=== PATIENT | male | born 1945 | race African-American/Black ===

== ENCOUNTER 2016-11-07 22:42 | Emergency (ER) | payer OTHER ==
--- NOTE | ~2016-11-07 | CR72 ---
[facility] A Service of [facility] & [facility] RADIOLOGY TEXT RESULTS PATIENT: NORAH NEVILLE LOCATION: [facility] : [birth year] UNIT #: [id number] AGE: [address]: Garcia Hager MD SEX: M ORDER DR: [id number] [facility] [address] [place], [place] [address] [id number] E MR#: [id number] Acc #: [id number] NAME: NORAH NEVILLE : 1945 SEX: M STUDY DATE/TIME: 11/07/2016 2256 UNIT: [facility] ROOM: STUDY DESCRIPTION: CR Chest Single View Portable Attending Physician: Garcia Hager M.D. Ordering Physician: Garcia Hager M.D. Primary Care Physician: No Primary Care Physician MEDICAL IMAGING REPORT This report is preliminary unless electronic signature is present EXAM Portable chest, 11/07 at 2256. INDICATION Acute mental status changes with hypoglycemia and mild chest congestion today. History of smoking. FINDINGS AP portable chest was obtained. No comparison. Lungs are emphysematous but clear. Cardiac and mediastinal contours are normal. There is no pneumothorax. There is atherosclerotic disease in the aorta. IMPRESSION Emphysema. No active disease. Dictated by... Kumar Kothari Jr., M.D. THIS IS AN ELECTRONICALLY VERIFIED REPORT Kumar Kothari Jr., M.D. at 11/08/2016 5:18 PM PREMA/renae TD: 11/08/2016 09:55 JOB #: [id number] MEDICAL IMAGING REPORT Page 1 of 1 COPY
--- NOTE | ~2016-11-07 | EKG ---
PATIENT: NORAH NEVILLE UNIT #: [id number] Ventricular Rate: 57 BPM Atrial Rate: 57 BPM P-R Interval: 140 ms QRS Duration: 104 ms Q-T Interval: 464 ms QTC Calculation(Bezet): 451 ms P [place]: 81 degrees Calculated R [place]: 53 degrees Calculated T [place]: -31 degrees Diagnosis Line: Sinus bradycardia with Premature atrial complexes Diagnosis Line: ST and T wave abnormality, consider inferolateral Diagnosis Line: ischemia Diagnosis Line: Abnormal ECG Diagnosis Line: No previous ECGs available Diagnosis Line: Confirmed by ELIO SOLIS MD ([id number]) on Diagnosis Line: 11/08/2016 8:37:46 AM INTERPRETING MD: IRMA GILLILAND
[2016-11-08 00:02] LABS: BASOPHIL# 0.1 X10e3 (0-0.3); BASOPHIL% 1.1 % (0-2.5); EOSINOPHIL# 0.2 X10e3 (0-0.7); EOSINOPHIL% 2.6 % (0.0-7.0); HEMATOCRIT 41.5 % (38.0-50.0); HEMOGLOBIN 13.4 gm/dL (13.0-16.0); MEAN CORPUSCULAR HEMOGLOBIN 29.6 PG (28-34); MEAN CORPUSCULAR HGB CONC 32.2 g/dL (30-36); MONOCYTE# 0.9 X10e3 (0-1.0); MONOCYTE% 14.5 % (3.0-12.0); NEUTROPHIL% 65.8 % (40-75); PLATELET COUNT 315 X10e3 (140-420); RED BLOOD COUNT 4.51 X10e (3.90-5.60); RED CELL DISTRIBUTION WIDTH 15.3 % (11.0-15.5)
[2016-11-08 00:04] LABS: DIFF IND NO
[2016-11-08 00:12] LABS: POC - CKMB <1.0 ng/mL (0.0-7.9); POC - TROPONIN <0.05 ng/mL (<=0.05)
[2016-11-08 00:37] LABS: ALBUMIN SERUM 3.2 g/dL (3.5-5.0); BILIRUBIN,TOTAL 0.7 mg/dL (0.2-2.0); BUN/CREATININE RATIO 15.38; CALCIUM SERUM 8.8 mg/dL (8.4-10.2); CREATININE SERUM 1.3 mg/dL (0.6-1.4); GLOM FILT RATE Estimated 64.1 mL/min (>60); POTASSIUM 3.1 mmol/L (3.5-5.1); PROTEIN TOTAL SERUM 6.6 g/dL (6.0-8.3)
== END 2016-11-08 02:44 | disposition home or self-care (01) ==
LOC: CED 22:42
PROVIDERS: Emergency Medicine
DX: E10.649 Type 1 diabetes mellitus with hypoglycemia without coma (principal); I10 Essential (primary) hypertension; Z98.890 Other specified postprocedural states
CPT/HCPCS: 36415; 71010; 80053; 82553; 82947; 84484; 85025; 87040; 93005; 96372; 96374; 99284; J1610

== ENCOUNTER 2016-12-17 00:04 | Inpatient (IN) | payer OTHER ==
--- NOTE | ~2016-12-17 | FU ---
[facility] Nutrition Therapy DATE: 12/24/16 Patient: NORAH PEACOCK AKICARMELLA Physician: KELLE Address: [address] [facility] Room/Bed: [address], Zip: [place] [address] Admit Date: 12/17/16 Date of : [birth year] Height: 5 10 Weight: 98 44.8 NUTRITION MONITORING/FOLLOW-UP: Reason: PT SEEN FOR FOLLOW-UP/ENTERAL NUTRITION DX: PNA W/ACUTE RESP FAILURE, HYPOGLYCEMIA, KULWINDER Anthropometrics: 5'9", WT: 98# (45 KG), BMI: 14.5 -ADMIT WEIGHT: 88# Labs: GLU: 219, BUN: 104, CREAT: 2.7, CA+:7.6, ALB: 1.5, AST: 214, ALT: 164, GFR: 26.5 Meds: KCL, PEPCID, ZOFRAN, LOPRESSOR, LEVEMIR, NACL, SOLU-MEDROL I&O's: 3055/1378, 3 BMs NOTED Skin: BLE 2+ EDEMA; RLE 2+ EDEMA Estimated Nutrition Needs: [id number] KCAL 64-80 G PRO Assessment: CHART REVIEWED AND EVENTS NOTED. PT SEEN FOR ENTERAL NUTRITION SUPPORT FOLLOW-UP. PT ASLEEP AT TIME OF VISIT-PT DID NOT WAKE TO VERBAL CUES. PT CURRENTLY RECEIVING ALTERNATIVE NUTRITION SUPPORT OF NEPRO @ 30 ML/HR + SUGAR-FREE PROSTAT ONCE DAILY. PER RN AND CHART, PT TOLERATING ENTERAL NUTRITION, NO ISSUES AT THIS TIME. PER PUMP HISTORY, PT RECEIVING ~65% GOAL VOLUME PAST 24 HOURS. OF NOTE, APPRENTICE ELECTRICIAN DEEMS PT NOT APPROPRIATE FOR DIET ADVANCEMENT 2' DECREASED COGNITIVE STATUS. NO FAMILY IN ROOM. PT NOT APPROPRIATE FOR DIET EDUCATON. RD TO CONTINUE TO FOLLOW. Dx: INADEQUATE NUTRIENT INTAKE R/T CURRENT CLINICAL CONDITION AEB NPO IN ICU, LOW BMI.-ACTIVE/RESOLVED NEW DX: INADEQUATE PROTEIN-ENERGY INTAKR R/T CURRENT CLINCAL CONDITION AEB PT RECEIVING ALTERNATIVE NUTRITION SUPPORT, LOW BMI. Intervention: 1. ENTERAL NUTRITION SUPPORT Monitoring, Evaluation and Goals: 1. ENTERAL NUTRITION; PROVIDE >80% ESTIMATED NEEDS AT GOAL VOLUME X 24 HOURS-NOT MET/IN PROGRESS 2. GI; PROMOTE REGULAR GI FUNCTION-IN PROGRESS 3. LABS; MONITOR GLUCOSE AND ELECTROLYTES, BUN, CREAT, AST, ALT-IN PROGRESS 4. WEIGHTS; PROMOTE A STEADY WEIGHT GAIN TOWARDS HEALTHY BMI-IN PROGRESS [facility] Nutrition Therapy DATE: 12/24/16 Patient: NORAH PEACOCK KELIN Physician: KELLE Address: [address] [facility] Room/Bed: [facility], Zip: [place] [address] Admit Date: 12/17/16 Date of : [birth year] Height: 5 10 Weight: 98 44.8 MONITOR: -TF RATE/RESIDUALS -WEIGHTS -APPRENTICE ELECTRICIAN RE-EVAL -WEIGHTS Recommendations: 1. RECOMMEND TO CONTINUE CURRENT ENTERAL NUTRITION SUPPORT OF NEPRO @ 30 ML/HR + SUGAR-FREE PROSTAT ONCE DAILY -PROVIDES 1396 KCAL, 73 G PRO, 613 ML FREE H20 CONTINUE FREE H20 FLUSHES PER MD 2. IF ELECTROLYTES REMAIN WITHIN NORMAL LIMITS, RECOMMEND TO CHANGE ENTERAL NUTRITION SUPPORT TO GLUCERNA 1.5 @ 10 ML/HR, ADVANCE 10 ML q 12 HOURS TO GOAL RATE OF 35 ML/HR -PROVIDES 1260 KCAL, 69 G PRO, 638 ML FREE H20 ADD FREE H20 FLUSHES PER MD 3. ONCE FEASIBLE, CONTINUE APPRENTICE ELECTRICIAN INTERVENTION TO DETERMINE IF PT CAN TOLERATE PO INTAKE RD WILL F/U PER PROTOCOL PT IS MOD/SEVERELY COMPROMISED Respectfully, WILSON ARTEAGA MS, RD, LD Food and Nutritional Services [facility] cc: client file
--- NOTE | ~2016-12-17 | CR72 ---
[facility] A Service of [facility] RADIOLOGY TEXT RESULTS PATIENT: NORAH NEVILLE LOCATION: [address] : [birth year] UNIT #: [id number] AGE: [address]: Hazel Alatorre MD SEX: M ORDER DR: [id number] [facility] [address] [place], [place] [address] [id number] I MR#: [id number] Acc #: [id number] NAME: NORAH NEVILLE : 1945 SEX: M STUDY DATE/TIME: 12/20/2016 18:18 UNIT: [facility] ROOM: [facility] STUDY DESCRIPTION: CR Chest Single View Portable Attending Physician: Hazel Alatorre M.D. Ordering Physician: Hazel Alatorre M.D. Primary Care Physician: Primary Care Physician No MEDICAL IMAGING REPORT This report is preliminary unless electronic signature is present EXAM Single view chest INDICATIONS Respiratory failure. Intubation. FINDINGS Single portable AP view chest compared to 12/20/2016 at 16:57. Endotracheal tube is in position approximate 5 cm above the javier. There is an enteric tube in the stomach. The heart and mediastinal contours are unchanged. There is a right PICC terminate over the cavoatrial junction. Bilateral interstitial opacities have slightly increased. No pneumothorax. IMPRESSION 1. Endotracheal tube approximate 5 cm above the javier. 2. Enteric tube below the diaphragm with the tip in the stomach. 3. Slight increase in interstitial edema. Dictated by... Manuel Kidd M.D. THIS IS AN ELECTRONICALLY VERIFIED REPORT Manuel Kidd M.D. at 12/21/2016 10:50 AM Yaneth/maury TD: 12/21/2016 08:54 JOB #: [id number] [facility] A Service of [facility] RADIOLOGY TEXT RESULTS PATIENT: NORAH NEVILLE LOCATION: [address] : [birth year] UNIT #: [id number] AGE: [address]: Hazel Alatorre MD SEX: M ORDER DR: MEDICAL IMAGING REPORT Page 1 of 1 COPY
--- NOTE | ~2016-12-17 | EKG ---
PATIENT: NORAH NEVILLE UNIT #: [id number] Ventricular Rate: 72 BPM Atrial Rate: 72 BPM P-R Interval: 128 ms QRS Duration: 82 ms Q-T Interval: 432 ms QTC Calculation(Bezet): 473 ms P [place]: 40 degrees Calculated R [place]: 50 degrees Calculated T [place]: 94 degrees Diagnosis Line: Normal sinus rhythm with sinus arrhythmia Diagnosis Line: Nonspecific ST and T wave abnormality Diagnosis Line: Prolonged QT Diagnosis Line: Abnormal ECG Diagnosis Line: When compared with ECG of 17-DEC-2016 00:24, Diagnosis Line: (unconfirmed) Diagnosis Line: Vent. rate has decreased BY 56 BPM Diagnosis Line: Confirmed by GILBERT NORTON MD ([id number]) on Diagnosis Line: 12/18/2016 3:05:29 PM INTERPRETING MD: BRIAN
--- NOTE | ~2016-12-17 | CR72 ---
[facility] A Service of [facility] RADIOLOGY TEXT RESULTS PATIENT: NORAH NEVILLE LOCATION: [address] : [birth year] UNIT #: [id number] AGE: [address]: Hazel Alatorre MD SEX: M ORDER DR: [id number] [address] [place], [place] [address] [id number] I MR#: [id number] Acc #: [id number] NAME: NORAH NEVILLE : 1945 SEX: M STUDY DATE/TIME: 12/23/2016 4:38 UNIT: [facility] ROOM: [facility] STUDY DESCRIPTION: CR Chest Single View Portable Attending Physician: Hazel Alatorre M.D. Ordering Physician: Elijah Delgado M.D. Primary Care Physician: Primary Care Physician No MEDICAL IMAGING REPORT This report is preliminary unless electronic signature is present EXAM Portable chest INDICATION Respiratory failure. PROCEDURE Frontal view chest. COMPARISON 12/21/2016 FINDINGS Heart size is unchanged. Patchy opacities in both lungs are stable. Interval extubation. No pneumothorax. IMPRESSION Interval extubation, otherwise stable. Dictated by... Srikanth Osman M.D. THIS IS AN ELECTRONICALLY VERIFIED REPORT Srikanth Osman M.D. at 12/23/2016 10:27 PM EED/allison TD: 12/23/2016 05:00 JOB #: [id number] MEDICAL IMAGING REPORT [facility] A Service of [facility] & [facility] RADIOLOGY TEXT RESULTS PATIENT: NORAH NEVILLE LOCATION: [address] : [birth year] UNIT #: [id number] AGE: [address]: Hazel Alatorre MD SEX: M ORDER DR: Page 1 of 1 COPY
--- NOTE | ~2016-12-17 | CR151 ---
[facility] A Service of [facility] & [facility] RADIOLOGY TEXT RESULTS PATIENT: NORAH NEVILLE LOCATION: [address] : [birth year] UNIT #: [id number] AGE: [address]: Hazel Alatorre MD SEX: M ORDER DR: [id number] [facility] [address] [facility]. [place], [place] [address] [id number] I MR#: [id number] Acc #: [id number] NAME: NORAH NEVILLE : 1945 SEX: M STUDY DATE/TIME: 12/17/2016 2:38 UNIT: [facility] ROOM: [facility] STUDY DESCRIPTION: CR Hip Min 2 Views Rt Attending Physician: Hazel Alatorre M.D. Ordering Physician: Laura Limon M.D. Primary Care Physician: Primary Care Physician No MEDICAL IMAGING REPORT This report is preliminary unless electronic signature is present EXAM Right hip, 12/17 INDICATION Pain and weakness today. Patient fell. FINDINGS AP pelvis was obtained in addition to a frogleg right hip. Patient is osteopenic. There is extensive atherosclerotic disease and there is a long left SFA stent partially seen. No acute fracture or malalignment is seen. IMPRESSION Osteopenia and atherosclerotic disease. No acute fracture. Dictated by... Kumar Kothari Jr., M.D. THIS IS AN ELECTRONICALLY VERIFIED REPORT Kumar Kothari Jr., M.D. at 12/17/2016 11:27 AM PREMA/angel TD: 12/17/2016 09:52 JOB #: [id number] MEDICAL IMAGING REPORT Page 1 of 1 COPY
--- NOTE | ~2016-12-17 | CR72 ---
[facility] A Service of [facility] RADIOLOGY TEXT RESULTS PATIENT: NORAH NEVILLE LOCATION: [address] : [birth year] UNIT #: [id number] AGE: [address]: Hazel Alatorre MD SEX: M ORDER DR: [id number] [facility] [address] [facility] [place], [place] [address] [id number] I MR#: [id number] Acc #: [id number] NAME: NORAH NEVILLE : 1945 SEX: M STUDY DATE/TIME: 12/19/2016 4:26 UNIT: [facility] ROOM: [facility] STUDY DESCRIPTION: CR Chest Single View Portable Attending Physician: Hazel Alatorre M.D. Ordering Physician: Ana Oliva M.D. Primary Care Physician: No Primary Care Physician MEDICAL IMAGING REPORT This report is preliminary unless electronic signature is present EXAM Portable chest INDICATION Respiratory failure, follow up. PROCEDURE Frontal view chest. COMPARISON 12/18/2016 FINDINGS Slightly increasing interstitial prominence in the right mid lung. Opacity at the left lung base is unchanged. No visible pneumothorax. IMPRESSION 1. Slightly increasing interstitial prominence in the right midlung could represent edema or a developing infiltrate. Otherwise, stable. 2. Not mentioned above, there is a new right approach PICC line that terminates in the distal SVC. No visible pneumothorax. Dictated by... Srikanht Osman M.D. THIS IS AN ELECTRONICALLY VERIFIED REPORT Srikanth Osman M.D. at 12/19/2016 10:23 PM EED/aa TD: 12/19/2016 08:56 JOB #: [id number] [facility] A Service [facility] RADIOLOGY TEXT RESULTS PATIENT: NORAH NEVILLE LOCATION: [address] : [birth year] UNIT #: [id number] AGE: [address]: Hazel Alatorre MD SEX: M ORDER DR: MEDICAL IMAGING REPORT Page 1 of 1 COPY
--- NOTE | ~2016-12-17 | CR72 ---
[facility] A Service of [facility] & [facility] RADIOLOGY TEXT RESULTS PATIENT: NORAH NEVILLE LOCATION: [address] : [birth year] UNIT #: [id number] AGE: [address]: Hazel Alatorre MD SEX: M ORDER DR: [id number] [facility] [address] [place], [place] [address] [id number] I MR#: [id number] Acc #: [id number] NAME: NORAH NEVILLE : 1945 SEX: M STUDY DATE/TIME: 12/18/2016 5:19 UNIT: [facility] ROOM: [facility] STUDY DESCRIPTION: CR Chest Single View Portable Attending Physician: Hazel Alatorre M.D. Ordering Physician: Adam Zayas M.D. Primary Care Physician: No Primary Care Physician MEDICAL IMAGING REPORT This report is preliminary unless electronic signature is present EXAM Portable chest INDICATION Respiratory failure today. PROCEDURE Frontal view chest. COMPARISON 12/17/2016 FINDINGS Heart size stable. Persistent left lung opacities, particularly at the left lung base. No new dense consolidation, pleural fluid, or pneumothorax. IMPRESSION Left basilar opacities unchanged. No significant change from yesterday. Dictated by... Srikanth Osman M.D. THIS IS AN ELECTRONICALLY VERIFIED REPORT Srikanth Osman M.D. at 12/18/2016 10:09 PM LIAM/thor TD: 12/18/2016 11:38 JOB #: [id number] MEDICAL IMAGING REPORT Page 1 of 1 COPY
--- NOTE | ~2016-12-17 | US77 ---
[facility] A Service of [facility] & [facility] RADIOLOGY TEXT RESULTS PATIENT: NORAH NEVILLE LOCATION: [address] : [birth year] UNIT #: [id number] AGE: [address]: Hazel Alatorre MD SEX: M ORDER DR: [id number] [facility] [address] [facility]. [place], [place] [address] [id number] I MR#: [id number] Acc #: [id number] NAME: NORAH NEVILLE : 1945 SEX: M STUDY DATE/TIME: 12/17/2016 7:33 UNIT: [facility] ROOM: [facility] STUDY DESCRIPTION: US Kidney Bilateral Complete Attending Physician: Hazel Alatorre M.D. Ordering Physician: Laura Limon M.D. Primary Care Physician: No Primary Care Physician MEDICAL IMAGING REPORT This report is preliminary unless electronic signature is present EXAM Renal ultrasound INDICATION Renal failure. Patient has a Creatinine of 5.5 and a GFR of 11.2. TECHNIQUE Santana-scale and color Doppler sonographic images were obtained through the kidneys and bladder. FINDINGS Right kidney is echogenic with cortical thinning which can be seen in the setting of medical renal disease. No hydronephrosis is seen and no solid or cystic renal are identified. Patient's left kidney is not well assessed but no hydronephrosis is identified. Urinary bladder is not seen. IMPRESSION 1. No evidence of hydronephrosis on either side. 2. Left kidney is very difficult to assess due to overlying rib shadow but right kidney appears to be echogenic with cortical thinning which can be seen in the setting of chronic medical renal disease. 3. Bladder cannot be visualized on these images. Dictated by... Sandi Hernandez M.D. THIS IS AN ELECTRONICALLY VERIFIED REPORT Sandi Hernandez M.D. at 12/17/2016 3:21 PM AFF/aa TD: 12/17/2016 12:02 [facility] A Service of [facility] RADIOLOGY TEXT RESULTS PATIENT: NORAH NEVILLE LOCATION: [facility] : 47 UNIT #: [id number] AGE: [address]: Hazel Alatorre MD SEX: M ORDER DR: JOB #: [id number] MEDICAL IMAGING REPORT Page 1 of 1 COPY
--- NOTE | ~2016-12-17 | CR72 ---
[facility] A Service of [facility] RADIOLOGY TEXT RESULTS PATIENT: NORAH NEVILLE LOCATION: [address] : [birth year] UNIT #: [id number] AGE: [address]: Hazel Alatorre MD SEX: M ORDER DR: [id number] [facility] [address] [facility]. [place], [place] [address] [id number] I MR#: [id number] Acc #: [id number] NAME: NORAH NEVILLE : 1945 SEX: M STUDY DATE/TIME: 12/20/2016 16:57 UNIT: [facility] ROOM: [facility] STUDY DESCRIPTION: CR Chest Single View Portable Attending Physician: Hazel Alatorre M.D. Ordering Physician: Elijah Delgado M.D. Primary Care Physician: Primary Care Physician No MEDICAL IMAGING REPORT This report is preliminary unless electronic signature is present EXAM Single view of the chest dated 12/20/2016 COMPARISON Single view chest dated 12/20/2016. HISTORY Respiratory failure, shortness of air for 3 days. FINDINGS Single view of the chest was obtained. There are scattered interstitial opacities of the reticulonodular pattern with probably some alveolar opacities. They are slightly improved in the right upper lobe and probably in the left lung diffusely along the medial aspect. Part of it could also be technical. Continued follow up is suggested. There is definitely no significant interval worsening seen. There is no free fluid or free air. Right subclavian approach PICC line catheter is in the SVC. Borderline sized stable heart. Dictated by... Gianni Frausto M.D. THIS IS AN ELECTRONICALLY VERIFIED REPORT Gianni Frausto M.D. at 12/21/2016 9:01 PM CPR/mjs TD: 12/21/2016 08:11 JOB #: [id number] [facility] A Service of [facility] RADIOLOGY TEXT RESULTS PATIENT: NORAH NEVILLE LOCATION: [facility]2-07 : [birth year] UNIT #: [id number] AGE: [address]: Hazel Alatorre MD SEX: M ORDER DR: MEDICAL IMAGING REPORT Page 1 of 1 COPY
--- NOTE | ~2016-12-17 | EKG ---
PATIENT: NORAH NEVILLE UNIT #: [id number] Ventricular Rate: 76 BPM Atrial Rate: 76 BPM P-R Interval: 120 ms QRS Duration: 88 ms Q-T Interval: 516 ms QTC Calculation(Bezet): 580 ms P [place]: 77 degrees Calculated R [place]: 63 degrees Calculated T [place]: -109 degrees Diagnosis Line: Sinus rhythm with Premature ventricular complexes Diagnosis Line: or Fusion complexes Diagnosis Line: ST and Marked T-wave abnormality, consider Diagnosis Line: inferolateral ischemia Diagnosis Line: Prolonged QT Diagnosis Line: Abnormal ECG Diagnosis Line: When compared with ECG of 18-DEC-2016 06:44, Diagnosis Line: Significant changes have occurred Diagnosis Line: Confirmed by GILBERT NORTON MD ([id number]) on Diagnosis Line: 12/22/2016 10:48:58 AM INTERPRETING MD: BRIAN
--- NOTE | ~2016-12-17 | CR72 ---
[facility] A Service of [facility] & [facility] RADIOLOGY TEXT RESULTS PATIENT: NORAH NEVILLE LOCATION: [address] : [birth year] UNIT #: [id number] AGE: [address]: Hazel Alatorre MD SEX: M ORDER DR: [id number] [facility] [address] [place], [place] [address] [id number] I MR#: [id number] Acc #: [id number] NAME: NORAH NEVILLE : 1945 SEX: M STUDY DATE/TIME: 12/20/2016 8:14 UNIT: [facility] ROOM: [facility] STUDY DESCRIPTION: CR Chest Single View Portable Attending Physician: Hazel Alatorre M.D. Ordering Physician: Luis E Jimenez M.D. Primary Care Physician: Primary Care Physician No MEDICAL IMAGING REPORT This report is preliminary unless electronic signature is present EXAM Portable chest 12/20/2016. [facility] HISTORY 71-year-old male patient with a history of pneumonia. Acute respiratory failure, cough, short of breath. History of hepatitis C, diabetes, high blood pressure. Positive smoking history. FINDINGS Portable chest again demonstrates normal heart size. The aorta is mildly sclerotic and ectatic. Right subclavian approach central line remains satisfactorily positioned. There is progression of generalized interstitial infiltrate. There are areas of coalescence. Findings remain consistent with worsening noncardiogenic edema and/or progression of atypical pneumonia. Clinical correlation required. Costophrenic angles show minimal blunting possibly reflecting tiny effusions at this time. IMPRESSION Worsening primary interstitial infiltrate with pattern of non cardiogenic edema. Progression of atypical pneumonia is a second option. All superimposed on underlying COPD. Central line remains well positioned. Dictated by... Theo Ford M.D. THIS IS AN ELECTRONICALLY VERIFIED REPORT Theo Ford M.D. at 12/20/2016 12:26 PM DEBBIE/maury TD: 12/20/2016 09:56 JOB #: [id number] [facility] A Service of [facility] & [facility] RADIOLOGY TEXT RESULTS PATIENT: NORAH NEVILLE LOCATION: [facility]07 : 47 UNIT #: [id number] AGE: [address]: Hazel Alatorre MD SEX: M ORDER DR: MEDICAL IMAGING REPORT Page 1 of 1 COPY
--- NOTE | ~2016-12-17 | CR72 ---
[facility] A Service of [facility] & [facility] RADIOLOGY TEXT RESULTS PATIENT: NORAH NEVILLE LOCATION: [address] : [birth year] UNIT #: [id number] AGE: [address]: Hazel Alatorre MD SEX: M ORDER DR: [id number] [facility] [address] [facility]. [place], [place] [address] [id number] I MR#: [id number] Acc #: [id number] NAME: NORAH NEVILLE : 1945 SEX: M STUDY DATE/TIME: 12/17/2016 0:17 UNIT: [facility] ROOM: [facility] STUDY DESCRIPTION: CR Chest Single View Portable Attending Physician: Hazel Alatorre M.D. Ordering Physician: Ryan Felder D.O. Primary Care Physician: No Primary Care Physician MEDICAL IMAGING REPORT This report is preliminary unless electronic signature is present EXAM Portable chest 12/17/2016 INDICATION Shortness of air, weakness today. Low blood sugar. History of smoking. FINDINGS AP portable chest compared with 11/07/2016. Cardiac and mediastinal contours are normal. There is emphysema. New infiltrate in the left base is compatible with pneumonia. Right lung is clear. No pneumothorax. IMPRESSION Emphysema with new left basilar pneumonia. Dictated by... Kumar Kothari Jr., M.D. THIS IS AN ELECTRONICALLY VERIFIED REPORT Kumar Kothari Jr., M.D. at 12/17/2016 11:25 AM ALICEK/thor TD: 12/17/2016 10:09 JOB #: [id number] MEDICAL IMAGING REPORT Page 1 of 1 COPY
--- NOTE | ~2016-12-17 | HP ---
Unit #: [id number] #: [id number] Patient: NORAH NEVILLE [id number] [address] [place], [place] [address] [id number] I MR#: [id number] NAME: NORAH NEVILLE ROOM: [facility] Age: 71 Sex: M Admission Date: 12/17/2016 : 1945 Attending Physician: Laura Limon M.D. Primary Care Physician: No Primary Care Physician HISTORY AND PHYSICAL CHIEF COMPLAINT Left lower lobe pneumonia, respiratory failure, hypoglycemia, acute kidney injury. HISTORY This 71-year-old male with hepatitis C, AODM, hypertension, is admitted for pneumonia. The patient is unable to provide history due to BiPAP. His states that three days ago he became more short of breath, and weaker. She noticed over the past day or so the patient developed a rattling type of nonproductive cough. His sugar was elevated last evening and she gave him 10 units of NovoLog. He then became hypoglycemic and she called EMS. The patient was brought to this emergency department where his O2 saturation was about 77% on room air. A non-rebreather was placed, and, ultimately, the patient required BiPAP. X-ray demonstrates a left lower lobe pneumonia. Labs also show a new acute kidney injury and hypoglycemia with a serum glucose of 31. In the ER, the patient was given an amp of D50, and 125 mg of Solu-Medrol. Currently is being bolused with a liter of saline. Zosyn and Levaquin are ordered. PAST MEDICAL HISTORY 1. Hepatitis C. 2. AODM with peripheral neuropathy. 3. Depression. 4. Hypertension. 5. Likely dementia per family's history. 6. PTSD. 7. Left BKA. ALLERGIES No known drug allergies. HOME MEDICATIONS 1. Skin care lotions. 2. Aspirin 81 mg daily. 3. Lipitor 80 mg daily. 4. Lisinopril 40 mg, one half tablet daily. 5. Metoprolol 50 mg, one half tablet b.i.d. 6. Neurontin 400 mg b.i.d. 7. 20 units of Levemir daily. 8. Effexor 75 mg daily. 9. Haldol 1 mg daily as needed. 10. BuSpar 5 mg, one half tablet b.i.d. Unit #: [id number] #: [id number] Patient: NORAH NEVILLE 11. NovoLog 10 units with breakfast, 6 units at noon and 10 units with dinner. 12. Nifedipine 30 mg daily. 13. Percocet 5/325 q.6 hours as needed. 14. Ledipasvir/Sofosbuvir for patient's hepatitis C. FAMILY HISTORY Heart disease and lung disease. SOCIAL HISTORY The patient lives with his and grandson. He smokes one pack per day of tobacco, does not drink alcohol. REVIEW OF SYSTEMS Impossible to obtain as patient is on BiPAP and is confused. PHYSICAL EXAMINATION GENERAL APPEARANCE: Confused, cachectic 71-year-old male, currently in no acute distress. VITAL SIGNS: Temperature has not been obtained as of yet. Weight is 38 kg with a BMI of 12. Heart rate 123, respirations 26, blood pressure 138/80. Current O2 saturation is 100% on BiPAP 70%. HEENT: Eyes PERRLA. Pharynx - I am unable to view the oropharynx due to BiPAP. NECK: Supple without adenopathy or thyromegaly. CHEST: Some crackles at the left base. Diminished breath sounds. CARDIAC: Normal S1 and S2 without murmur. ABDOMEN: Bowel sounds are diminished but nontender. No hepatosplenomegaly or masses. EXTREMITIES: Left BKA. There is pain in the right hip with movement of the right leg. Abrasion over the right great toe. Right pedal pulse is markedly diminished. NEUROLOGIC: The patient is awake, on BiPAP, but seems to be confused. He is able to move all of the extremities. DIAGNOSTIC STUDIES LABORATORY: Admission labs - hematocrit is 42.7, white blood count is 20, platelet count is 441, four bands are noted. SMA-12 - glucose 31, BUN 78, creatinine 5.5, up from a BUN of 20, creatinine of 1.3 last month. Sodium 146, albumin 3.1, AST 241, ALT 153. Also newly elevated since last month. Alkaline phos. 113. BNP 101, lactic acid is 2.3. ABG - pH 7.32, pCO2 43, pO2 73, O2 saturation is 93% on a non-rebreather. IMAGING: Chest x-ray - left lower lobe infiltrate. CARDIOVASCULAR: EKG shows sinus tachycardia, rate 130. ASSESSMENT 1. Left lower lobe pneumonia which could be community-acquired versus aspiration: Likely has underlying chronic obstructive pulmonary disease. 2. Adult onset diabetes mellitus with hypoglycemia. 3. Acute kidney injury. 4. Elevated liver function tests. 5. Hepatitis C, on antiviral medicines. Unit #: [id number] #: [id number] Patient: NORAH NEVILLE 6. Essential hypertension. 7. Mild dementia. 8. Cachexia. 9. Neuropathy. 10. Post traumatic stress disorder and depression. 11. Right hip pain. 12. Below knee amputation. 13. Tobacco abuse. PLANS 1. Panchal catheter, obtain urinalysis, obtain renal ultrasound and hold BAUDILIO inhibitor. 2. Zosyn and Levaquin for now, continue BiPAP, check ABG and BiPAP. Continue steroids, will order Duo-Nebs and ask pulmonary to consult in the morning. 3. Hemoglobin A1c, frequent Accu-Cheks, sliding scale insulin when Accu-Cheks improve. 4. Hold antiviral medicines and most of the patient's medicines. 5. DVT and gastritis prophylaxis. 6. X-ray of the right hip. 7. Prognosis is guarded. Critical care time spent in evaluating this patient was 40 minutes. Dictated by Laura Limon M.D. IMAN/dawit TD: 12/17/2016 05:23 JOB #: [id number] HISTORY AND PHYSICAL Page 1 of 1 X Laura Limon MD X HISTORY AND PHYSICAL
--- NOTE | ~2016-12-17 | EKG ---
PATIENT: NORAH NEVILLE UNIT #: [id number] Ventricular Rate: 92 BPM Atrial Rate: 92 BPM P-R Interval: 124 ms QRS Duration: 74 ms Q-T Interval: 450 ms QTC Calculation(Bezet): 556 ms P Capulin: 79 degrees Calculated R Capulin: 62 degrees Calculated T Capulin: -103 degrees Diagnosis Line: Normal sinus rhythm Diagnosis Line: Low voltage QRS Diagnosis Line: ST and Marked T wave abnormality, consider Diagnosis Line: anterolateral ischemia Diagnosis Line: Prolonged QT Diagnosis Line: Abnormal ECG Diagnosis Line: When compared with ECG of 21-DEC-2016 06:14, Diagnosis Line: (unconfirmed) Diagnosis Line: Fusion complexes are no longer Present Diagnosis Line: Premature ventricular complexes are no longer Diagnosis Line: Present Diagnosis Line: Confirmed by GILBERT NORTON MD ([id number]) on Diagnosis Line: 12/22/2016 10:54:02 AM INTERPRETING : BRIAN
--- NOTE | ~2016-12-17 | FU ---
[facility] Nutrition Therapy DATE: 12/20/16 Patient: NORAH PEACOCK KAICARMELLA Physician: KELLE Address: [address] [facility] Room/Bed: [address], Zip: [place] [address] Admit Date: 12/17/16 Date of : [birth year] Height: 5 10 Weight: 101 46 NUTRITION MONITORING/FOLLOW-UP: Reason: follow-up, NPO in ICU 71 y/o male admitted for PNA with respiratory failure, hypoglycemia, KULWINDER Anthropometrics: ht: 5'9" wt: 101# (46 kg) BMI: 14 -Admit weight 88# (40 kg) Labs: K+ 2.8, Cl- 112, Glu 163, BUN 63, Creat 3.3, Ca++ 6.8, Alb 1.7, AST 339, ALT 189, Vivienne 5.0 (12/18), Accuchecks 273, Prealb 8.1, GFR 20.8 Meds: KCl, pepcid, novolog, morphine-sulfate, NaCl, zithromax, zosyn, lopressor I&O's: 4109/2912. Last BM 12/20 Skin: No issues. No edema. Estimated Nutrition Needs: 7234-2981 kcal (30-35 kcal/kg) 64-80 g protein (1.6-2.0 g/kg) fluids consistent with kcal needs or per MD Assessment: Chart reviewed, events noted. Pt continues to be NPO in ICU (NPO x 4 days). Per RN report, the pt failed CONFERENCE SPECIALIST video swallow this morning and is likely going to be intubated today with DHT placed. RN reports that pt has had a large amount of blood from NT suction. Per chart and updated labs, the pt's kidney function has slightly improved and there are no plans for dialysis at this time. There are no plans for nutrition in place at this time. Of note, the pt is at risk for refeeding syndrome due to low BMI, MD noted cachexia, and prolonged NPO status. Please see recommendations, RD to continue to follow. Dx: Inadequate nutrient intake r/t current clinical condition AEB NPO in ICU, low BMI -active Intervention: 1. NPO 2. Enteral nutrition if appropriate Monitoring, Evaluation and Goals: 1. Adequate PO intake; >50% of meals once diet is advanced -NOT MET 2. Prevent/correct micro/macro-nutrient deficiencies -NOT MET 3. Weight; promote a steady weight gain towards a healthy BMI -IN PROGRESS [facility] Nutrition Therapy DATE: 12/20/16 Patient: NORAH NEVILLE Physician: KELLE Address: [address] [place] [address] Room/Bed: [address], Zip: [place] [address] Admit Date: 12/17/16 Date of : [birth year] Height: 5 10 Weight: 101 46 New goals: 1. Enteral nutrition; once medically feasible and if initiated, provide >80% estimated needs at goal volume x 24 hours 2. GI; promote regular GI function 3. Labs; monitor glucose and electrolytes, BUN, creat. AST, ALT Recommendations: 1. Once medically feasible, begin enteral nutrition support with Glucerna 1.5 @ 10 mL/hr and advance 10 mL q 12 hours to goal rate of 35 mL/hr. This will provide 1260 kcals, 69 g protein, 638 mL H20. Free water flushes per MD. 2. Pt is at risk for refeeding syndrome. Once enteral nutrition support initiated, monitor glucose and electrolytes to watch for signs of refeeding syndrome. 3. Monitor kidney function, obtain new Phos. 4. If the pt is not intubated, continue CONFERENCE SPECIALIST intervention to determine if the pt can tolerate PO intake. RD will f/u per protocol as pt is at mod/severe nutritional risk. Respectfully, THOMAS DOWNS, art gallery internship Claudia Dodson, LYNN, LD Food and Nutritional Services [facility] cc: client file
--- NOTE | ~2016-12-17 | CO ---
Unit #: [id number] #: [id number] Patient: NORAH NEVILLE [id number] [address] [address] [id number] I MR#: [id number] NAME: NORAH NEVILLE ROOM: 462 Age: 71 Sex: M Admission Date: 12/17/2016 : 1945 Attending Physician: Aureliano Toledo M.D. Primary Care Physician: No Primary Care Physician Consultation Date: 12/17/2016 CONSULTATION REPORT REASON FOR CONSULTATION Elevated troponin. HISTORY OF PRESENT ILLNESS This is a 71-year-old -[place] male who was new to our group with a past medical history of hypertension, hyperlipidemia, diabetes mellitus type 2. 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 The patient has a history of possible dementia. He is known to have PTSD, hepatitis C, and some immobility issues. He presented to the hospital on 12/17/2016 with complaints of weakness and shortness of breath. He also had a nonproductive cough reportedly. According to documentation, his blood sugars were elevated and he was given a dose of insulin at home. He became hypoglycemic and EMS was dispatched. The patient cannot give a history and information has been obtained from documentation and nursing staff. In the emergency department, his pulse was 123, respirations 26, blood pressure 138/80, O2 saturation 80% on room air. He was given an amp of D50, Solu-Medrol and start on normal saline. Initial labs revealed a white blood cell count of 20,000. Glucose level was 31. Creatinine was 5.5 with a BUN of 20. The patient's previous creatinine was 1.3. LFTs were elevated. Lactic acid was 2. BMP was 101. He was placed on a nonrebreather. ABG revealed mild acidosis with a pO2 of 73 and pH 7.32. He was placed on nonbreather. Chest x-ray revealed a left lower lobe infiltrate. EKG revealed sinus tachycardia. He was admitted for left lower lobe pneumonia, diabetes with hypoglycemia, acute kidney injury, and elevated LFTs. Cardiology was consulted for elevated troponin. The patient's initial troponin was 0.30 and then increased to 0.32. It is unclear if he has had any episodes of chest pain, as he is a poor historian. PAST MEDICAL HISTORY 1. Hypertension. 2. Hyperlipidemia. 3. Diabetes mellitus, type 2. 4. Peripheral neuropathy. 5. 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 6. PTSD. 7. Depression. 8. Possible dementia. 9. Immobility syndrome. 10. Hepatitis C. 11. Active tobacco abuse. Unit #: [id number] #: [id number] Patient: NORAH NEVILLE PAST SURGICAL HISTORY Left BKA. HOME MEDICATIONS 1. Aspirin 81 mg p.o. daily. 2. Lipitor 80 mg p.o. daily. 3. Lisinopril 40 mg 1/2 tablet daily. 4. Metoprolol 50 mg 1/2 tablet b.i.d. 5. Neurontin 400 mg p.o. b.i.d. 6. Levemir 20 units subcu daily. 7. Effexor 75 mg p.o. daily. 8. Haldol 1 mg p.o. daily as needed. 9. BuSpar 5 mg 1/2 tablet p.o. b.i.d. 10. NovoLog 10 units with breakfast, 6 units at noon, and 10 units with dinner. 11. Nifedipine 30 mg p.o. daily. 12. Percocet 5/325 mg 1 tablet p.o. q.6 hours p.r.n. for pain. 13. Ledipasvir-Sofosbuvir for hepatitis C. ALLERGIES No known drug allergies. SOCIAL HISTORY Patient lives in a private residence. He reportedly smokes a pack of cigarettes per day. There are no reports of alcohol or illicit drug use. FAMILY HISTORY Significant for heart disease according to documentation. REVIEW OF SYSTEMS Difficult to obtain as patient is now on BiPAP and is confused. PHYSICAL EXAMINATION VITAL SIGNS: Temperature 97.7, pulse 73, blood pressure 133/74. CONSTITUTIONAL: This is a 71-year-old -H[place]ian male in no acute distress. SKIN: Warm and dry. NECK: Supple. No jugular venous distention. No hepatojugular reflux. Normal carotid upstrokes. No carotid bruits auscultated. HEART: S1 and S2. Regular rate and rhythm and tachycardic. No murmurs, rubs or gallops. LUNGS: Bilateral breath sounds have rhonchi and wheezes. ABDOMEN: Soft, nontender, nondistended. Positive bowel sounds auscultated x4 quadrants. No ascites noted. EXTREMITIES: Bilateral extremities have no pretibial pitting edema. DP and PT pulses 2+. Capillary refill after three seconds. DIAGNOSTIC STUDIES LABORATORY DATA: White blood cell count 20.2, hemoglobin 14, hematocrit 42.7, platelets 441. Sodium 146, potassium 4.8, chloride 111, CO2 19, BUN 78, creatinine 5.4, glucose 108, AST 232, ALT 129, alk phos 92, albumin 2.7. CK total 11,377. Troponin 0.30 and 0.32. BNP 101. Hemoglobin A1c 6. INR 1.0. Urinalysis positive for trace leuks, 2+ protein, 250 glucose, 3+ blood. Blood cultures pending. Urine culture pending. IMAGING STUDIES: Chest x-ray reveals emphysema with new left basilar pneumonia. Unit #: [id number] #: [id number] Patient: NORAH NEVILLE CARDIOVASCULAR: Electrocardiogram reveals sinus tachycardia with a ventricular rate of 128 BPM. Possible left atrial enlargement. Nonspecific ST-T wave changes, QTC 414 msec. IMPRESSION 1. Acute hypoxic respiratory failure. 2. Diabetes mellitus with hypoglycemia. 3. Probable left lower lobe pneumonia. 4. Acute kidney injury. 5. Elevated liver function tests. 6. Mildly elevated Troponin, questionably from supply and demand versus ischemia. 7. Hypertension. 8. Hyperlipidemia. 9. Peripheral neuropathy. 10. 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 11. Posttraumatic stress disorder. 12. Depression. 13. Mobility syndrome. 14. Active tobacco abuse. PLANS 1. The patient presented to the hospital with shortness of breath and weakness. He was also found to have hypoglycemia. He was admitted for diabetes with hypoglycemia and left lower lobe pneumonia. 2. Cardiology was consulted due to elevated troponin. 3. It is unclear if the patient has had any chest pain. He is currently a poor historian and cannot provide a history. Cardiac enzymes are indeterminate. Will trend cardiac enzymes and repeat EKG. 4. Patient will be placed on aspirin and therapeutic Lovenox. 5. Fasting lipid profile will be obtained. 6. 2D echocardiogram will be ordered to assess LV function and valves. 7. No statin will be prescribed at this time due to elevated LFTs. 8. Patient is ill-appearing and prognosis is guarded. Dictated by... GENE Mckoy M.D. TR/dontae TD: 12/30/2016 08:35 JOB #: [id number] CONSULTATION REPORT Page 1 of 1 X X CONSULTATION REPORT
--- NOTE | ~2016-12-17 | CR7 ---
[facility] A Service of [facility] & [facility] RADIOLOGY TEXT RESULTS PATIENT: NORAH NEVILLE LOCATION: [address] : [birth year] UNIT #: [id number] AGE: [address]: Hazel Alatorre MD SEX: M ORDER DR: [id number] [facility] [address] [facility]. [place], [place] [address] [id number] I MR#: [id number] Acc #: [id number] NAME: NORAH NEVILLE : 1945 SEX: M STUDY DATE/TIME: 12/20/2016 18:21 UNIT: [facility] ROOM: [facility] STUDY DESCRIPTION: CR Abdomen Single AP View Attending Physician: Hazel Alatorre M.D. Ordering Physician: Hazel Alatorre M.D. Primary Care Physician: Primary Care Physician No MEDICAL IMAGING REPORT This report is preliminary unless electronic signature is present EXAM Single view abdomen INDICTIONS Enteric tube placement FINDINGS Single AP view of the abdomen without comparison. Enteric tube is below the diaphragm with the tip in the stomach. Bowel gas pattern is not obstructed. IMPRESSION Enteric tube is below the diaphragm with the tip in the stomach. Dictated by... Manuel Kidd M.D. THIS IS AN ELECTRONICALLY VERIFIED REPORT Manuel Kidd M.D. at 12/21/2016 10:50 AM SILVERIO/maury TD: 12/21/2016 08:57 JOB #: [id number] MEDICAL IMAGING REPORT Page 1 of 1 COPY
--- NOTE | ~2016-12-17 | CR72 ---
[facility] A Service of [facility] & [facility] RADIOLOGY TEXT RESULTS PATIENT: NORAH NEVILLE LOCATION: [place] [address] : [birth year] UNIT #: [id number] AGE: [address]: Hazel Alatorre MD SEX: M ORDER DR: [id number] [facility] [address] [facility]. [place], [place] [address] [id number] I MR#: [id number] Acc #: [id number] NAME: NORAH NEVILLE : 1945 SEX: M STUDY DATE/TIME: 12/21/2016 5:46 UNIT: [facility] ROOM: [facility] STUDY DESCRIPTION: CR Chest Single View Portable Attending Physician: Hazel Alatorre M.D. Ordering Physician: Elijah Delgado M.D. Primary Care Physician: No Primary Care Physician MEDICAL IMAGING REPORT This report is preliminary unless electronic signature is present EXAM Portable chest 12/21. INDICATIONS Pneumonia and respiratory failure for 4 days. FINDINGS AP portable chest compared with 12/20/2016. Tubes and lines are unchanged. There is emphysema. Diffuse bilateral pneumonia is not significantly changed in the short interval. No pneumothorax. Dictated by... Kumar Kothari Jr., M.D. THIS IS AN ELECTRONICALLY VERIFIED REPORT Kumar Kothari Jr., M.D. at 12/21/2016 12:56 PM PREMA/jo-ann TD: 12/21/2016 12:49 JOB #: [id number] MEDICAL IMAGING REPORT Page 1 of 1 COPY
--- NOTE | ~2016-12-17 | DS ---
Unit #: [id number] #: [id number] Patient: NORAH NEVILLE [id number] [address] [address] [id number] I MR#: [id number] NAME: NORAH NEVILLE ROOM: 462 Age: 71 Sex: M Admission Date: 12/17/2016 : 1945 Discharge Date: 12/26/2016 Attending Physician: Aureliano Toledo M.D. Primary Care Physician: No Primary Care Physician DISCHARGE SUMMARY ADDENDUM HOSPITAL COURSE Please see Dr. Hidalgo's discharge/transition of care summary for initial part of hospital stay. Essentially afterwards, after review and discussion with the patient's family including sister present at bedside as well as numerous family members, decision was made for comfort care measures only. All routine medications were discontinued. Patient was placed on routine protocol. At this point in time we are awaiting hospice services to see and evaluate patient. Patient is clinically stable for transition and likely will require inpatient hospice. CURRENT CLINICAL DIAGNOSES Please see above. DISCHARGE MEDICATIONS As per hospice service. Dictated by... Swapnil DixonN/neno TD: 12/28/2016 18:32 JOB #: [id number] DISCHARGE SUMMARY Page 1 of 1 X Aureliano Toledo MD X DISCHARGE SUMMARY
--- NOTE | ~2016-12-17 | TOC ---
Unit #: [id number] #: [id number] Patient: NORAH SIDHU [id number] [address] [address] [id number] I MR#: [id number] NAME: NORAH SIDHU ROOM: 462 Age: 71 Sex: M Admission Date: 12/17/2016 : 1945 Attending Physician: Aureliano Toledo M.D. Primary Care Physician: No Primary Care Physician TRANSFER OF CARE SUMMARY PRINCIPAL DIAGNOSES 1. Acute on likely chronic hypoxic respiratory failure, multifactorial. 2. Multifocal aspiration pneumonia. 3. Non-ST segment elevation myocardial infarction. 4. Acute kidney injury with acute tubular necrosis. 5. Acute exacerbation of chronic obstructive pulmonary disease. 6. Diabetes mellitus type 2, insulin requiring with hemoglobin A1c of 6.0. 7. Hypoglycemia. 8. Pulmonary hypertension. 9. Mild mitral regurgitation. 10. Leukocytosis, primarily neutrophils, concerning for underlying malignancy. 11. Severe rhabdomyolysis. 12. Transaminitis secondary to rhabdomyolysis in addition to number next. 13. Hepatitis C. 14. Hypomagnesemia. 15. Hypophosphatemia. 16. Acute blood loss anemia. 17. Severe protein malnutrition. 18. Severely underweight. 19. Hemoptysis, likely traumatic in origin. 20. Peripheral arterial disease. 21. Severe vascular dementia. 22. Chronic immobility. CONSULTANTS Dr. Delgado, pulmonology. Dr. De La O, cardiology. Dr. Petersen, nephrology. PROCEDURES Two-dimensional echocardiogram on 12/17/2016 with ejection fraction of 50%-55%. Normal systolic function noted. Severe mitral anular calcification. Mild mitral stenosis. Mild mitral regurgitation. Mild to moderate tricuspid regurgitation. Right ventricular systolic pressure of 49 mmHg. DIAGNOSTIC DATA IMAGING: Chest x-ray on 12/17/2016 with emphysema and left basilar infiltrate. Right hip x-ray on 12/17/2016 with osteopenia and atherosclerotic disease. Unit #: [id number] #: [id number] Patient: NORAH SIDHU Bilateral renal ultrasound on 12/17/2016 without evidence of hydronephrosis. Right kidney is echogenic with cortical thinning. Multiple follow-up chest x-rays demonstrate hyperinflation and increasing edema and/or infiltrate. CLINICAL HISTORY/HOSPITAL COURSE Mr. Sidhu is a 71-year-old male who was brought to the emergency department with increasing shortness of breath of several days duration. He was having some hyperglycemia at home and was given some insulin and subsequently found to be hypoglycemic here. Upon presentation he was hypoxic and ultimately required BiPAP therapy. The patient was subsequently admitted to the ICU. In regard to the patient's respiratory failure, again, he was maintained on BiPAP and Dr. Delgado was consulted. The patient was maintained on BiPAP for approximately two days. He was also placed on antibiotic therapy for presumed aspiration pneumonia, given he had significant severe dysphagia on examination. He was also placed on IV steroids and nebulizer treatments. Unfortunately, due to the patient's severe dysphagia he kept having recurrent aspiration of his secretions. At this point, due to increasing respiratory distress, the patient was intubated on 12/20/2016. He remained on the ventilator approximately 48 hours and subsequently extubated. Unfortunately, following extubation the patient had recurrent aspiration of his secretions and is now with an increasing respiratory distress. Please see below. Upon presentation, the patient was also found to have a significantly elevated creatinine of 5.5 with a reportedly normal baseline. Nephrology was consulted and nephrotoxic medications were discontinued and the patient is maintained on IV fluids. At the time of dictation creatinine is now down to 2.7, which appears to be stable. He has had some significant associated rhabdomyolysis, which is likely a contributing source as well. The patient was also found to have an elevated troponin during hospitalization, for which cardiology was consulted. The patient's troponin peaked at 3.40, but has subsequently been trending down. He was placed on medical management, including Lovenox. Lovenox had to be discontinued given the patient developed some hemoptysis, likely secondary to requirements for frequent suctioning due to his dysphagia. Plan, given his other medical conditions, at this point is medical management only. The patient was also found to have significant leukocytosis, predominantly neutrophils at approximately 96%-98%. Hematology was asked to evaluate, but there has been a change in plans since that time. Given the patient's multiple comorbidities, including his severe vascular dementia, his peripheral arterial disease, his coronary artery disease, his poor respiratory status, his dysphagia, all of this was discussed with the patient's family, who at this point given the patient's increasing respiratory distress, have decided to make him comfort measures only. We will initiate Ativan, morphine, Robinul and stop all other medications with the goal of comfort. Further hospital course to be dictated as an addendum. Time spent on critical care today is in the chart. Unit #: [id number] #: [id number] Patient: NORAH SIDHU Dictated by... Hazel Alatorre M.D. KEH/gz TD: 12/26/2016 12:26 JOB #: [id number] CC: [facility] TRANSFER OF CARE SUMMARY Page 1 of 1 X Hazel Alatorre MD X TRANSFER OF CARE SUMMARY
--- NOTE | ~2016-12-17 | EKG ---
PATIENT: NORAH NEVILLE UNIT #: [id number] Ventricular Rate: 128 BPM Atrial Rate: 128 BPM P-R Interval: 118 ms QRS Duration: 78 ms Q-T Interval: 284 ms QTC Calculation(Bezet): 414 ms P [place]: 74 degrees Calculated R [place]: 25 degrees Calculated T [place]: 89 degrees Diagnosis Line: Sinus tachycardia Diagnosis Line: Possible Left atrial enlargement Diagnosis Line: Nonspecific T wave abnormality Diagnosis Line: Abnormal ECG Diagnosis Line: No previous ECGs available Diagnosis Line: Confirmed by GILBERT NORTON MD ([id number]) on Diagnosis Line: 12/18/2016 2:49:19 PM INTERPRETING MD: BRIAN
--- NOTE | ~2016-12-17 | CO ---
Unit #: [id number] #: [id number] Patient: NORAH SIDHU [id number] [address] [place], [place] [address] [id number] I MR#: [id number] NAME: NORAH SIDHU ROOM: [facility] Age: 71 Sex: M Admission Date: 12/17/2016 : 1945 Attending Physician: Hazel Alatorre M.D. CONSULTATION REPORT We were asked to see him for respiratory failure and pneumonia. HISTORY OF PRESENT ILLNESS Mr. Sidhu is 71-year-old male with a history of a left BKA couple of years ago and limited mobility and limited enthusiasm for mobility ever since then. He has been mostly in bed. The family says that in the past he could get up and ambulate with a walker and get to the bathroom but for months now he really isn't get up. In the last couple of days, he has had increased lethargy, will not even get up to go to the bathroom, tends to be incontinent in bed, and apparently not think anything about it, and started to become more weak and dropping objects. He has been coughing but he can not really seem to expectorate. He has been taking in less oral nutrition in the last couple of days. They were unaware of any fever or chills. Unfortunately, he has continued to smoke cigarettes probably up to a pack a day and he does indeed smoke in bed. He was noted to have decreased blood sugars yesterday and because he was incontinent, his had tried to stand him up in order to change the bed clothes and when she did, he seemed just collapsed down to the floor. He was therefore brought to the hospital. PAST MEDICAL HISTORY Significant for dementia this apparently is an official diagnosis, history of hepatitis C. he has been on medication for that. Diabetes mellitus with peripheral nerve neuropathy, depression, hypertension, PTSD, history of peripheral artery disease, and status post left BKA for a foot gangrene approximately two years ago. MEDICATIONS On admission had included AmLactin which is ammonium lactate actually topically b.i.d., aspirin 81 mg p.o. daily, Lipitor 80 mg p.o. at bedtime, lisinopril 20 mg p.o. daily, Lopressor 50 mg p.o. b.i.d., Neurontin 400 mg q.12, Levemir 20 units subcu daily, Effexor 75 mg p.o. daily, Haldol 1 mg p.o. daily, buspirone 7.5 mg p.o. b.i.d., NovoLog 10 units subcutaneously b.i.d. before breakfast and before evening meal, NovoLog 6 units subcu daily at noon, Harvoni one p.o. daily, Adalat CC 30 mg p.o. daily, and Percocet 5/325 q.6h p.r.n. ALLERGIES No known drug allergies. SOCIAL HISTORY Smokes a pack a day. Unit #: [id number] #: [id number] Patient: NORAH SIDHU FAMILY HISTORY Significant for lung disease. REVIEW OF SYSTEMS He does have some dysphagia according to the family. He has had incontinence for both urine and bowel according to the family, which is his recent problem, recent hypoglycemia as mentioned, and generalized weakness as mentioned, all other systems are negative except as mentioned. PHYSICAL EXAMINATION GENERAL: He presents as an older male, who is rather frail in appearance, chronically ill in appearance, really in no acute distress. VITAL SIGNS: Temperature was 97.9, pulse 88, respirations 18, blood pressure 147/77, and saturation 100%. NECK: Without adenopathy. LUNGS: The patient's lungs shows his breathing is maybe mildly labored. He has an inspiratory and expiratory rhonchi bilaterally throughout. HEART: Regular. ABDOMEN: Soft and bowel sounds are present. EXTREMITIES: Reveal left BKA. His right foot is intact. SKIN: However evaluation of the skin reveals an ulcer on the medial aspect of his first toe. DIAGNOSTIC STUDIES IMAGING STUDIES: Chest x-ray to my exam reveals hyperinflation. There was a left lower lobe somewhat diffuse looking infiltrate but did not seem to be taking up a lot of space. LABORATORY RESULTS: Blood gas 70%, I do not know if that was BiPAP, pH 7.33, pCO2 of 36, and PO2 of 135. There is a previous blood gas on 100% non-rebreather pH 7.32, pCO2 of 43, and PO2 of 73. Serum chemistries BUN 78, creatinine 5 and that is new previously 78 and 5.4, his potassium was 4.7, previously was 4.8, and bicarb was 18. On admission, he had an AST of 241, ALT 153, and ALP 113. He had a CK that was markedly elevated of 11,377. Lactic acid was 2.4. White blood cell count 20.4, H and H 12.3 and 39, and 364,000 platelets. IMPRESSION 1. Acute hypoxemic respiratory failure. This could also be acute on chronic, because I do not know his underlying oxygenation status but probably note acute. 2. Left lower lobe pneumonia, a bit diffuse community-acquired and must consider aspiration. 3. Likely emphysema based on the appearance of his chest x-ray. 4. Likely chronic obstructive pulmonary disease with probably some exacerbation. 5. Debilitated state. 6. Peripheral arterial disease with a left below knee amputation. 7. Hepatitis C on Harvoni. 8. Acute kidney injury. 9. Probable rhabdomyolysis. PLAN It looks like he has been started on Zosyn and Zithromax, he might have been getting a little bit of Levaquin also. I am fine with Zosyn and Zithromax. He is on Solu-Medrol 40 q.8h which is fine also. I would like to add 3% saline mini nebs. He should continue his albuterol mini nebs, or Duo Nebs. We need to encourage him to expectorate. My concern is if Unit #: [id number] #: [id number] Patient: NORAH SIDHU he does not do a better job with the clearance that he will likely end up being intubated. He does not need intubation yet. Thank you very much for allowing me to participate in the care of this patient. Dictated by... Adam Zayas M.D. JAE/juanita TD: 12/18/2016 12:34 JOB #: [id number] CC: Laura Limon M.D. CONSULTATION REPORT Page 1 of 1 X Adam Zayas MD CONSULTATION REPORT
--- NOTE | ~2016-12-17 | A ---
[facility] Nutrition Therapy DATE: 12/17/16 Patient: NORAH PEACOCK KELIN Physician: KELLE Address: [address] [facility] Room/Bed: [address], Zip: [place] [address] Admit Date: 12/17/16 Date of : [birth year] Height: 5 10 Weight: 88 40 NUTRITIONAL ASSESSMENT: REASON: NPO IN ICU, LOW BMI PATIENT ADMITTED FOR PNA WITH RESPIRATORY FAILURE, HYPOGLYCEMIA, AND KULWINDER PMH: DM2, DEMENTIA, HEP C, HTN, DEPRESSION, L-BKA Anthropometrics: HT: 68-69" PER FAMILY, WT: 40KG, BMI: 13.4 Labs: 12/17/16- NA: 146, BUN: 78, CREA: 5.4, CA: 8.1, ALB: 2.7, AST: 232, ALT: 129, HGBA1C: 6.0, GFR: 11.5 Meds: NACL, ZITHROMAX, 5% DEXTROSE, SODIUM BICARBONATE, ZOFRAN I/O & Bowel function: 599/85, LBM 12/16/16 Skin Integrity: INTACT, NO EDEMA Estimated Nutrition Needs: INCREASED 2' NPO STATUS, LOW BMI Assessment: PATIENT IS A 71 Y/O MALE ADMITTED FOR PNA WITH RESPIRATORY FAILURE, HYPOGLYCEMIA, AND KULWINDER. PATIENT IS NOTED TO SMOKE 1 PPD AND HE HAS CONFUSION. PATIENT HAS BEEN ON A BIPAP MACHINE, WHICH IS CURRENTLY BEING REMOVED. PATIENT HAD FAMILY AT BEDSIDE WHO STATED THAT PATIENT HAS ALWAYS BEEN A VERY SMALL PERSON. THEY REPORT THAT HIS ACTIVITY LEVEL HAS BEEN VERY LOW AND SEDENTARY, AND THE PATIENT MAY HAVE LOST 5# RECENTLY. MD NOTES PATIENT IS CACHECTIC. PATIENT HAS A L-BKA. NURSING REPORTED THAT PATIENT IS DOING BETTER AND SHOULD HAVE HIS DIET ADVANCED TODAY OR TOMORROW, HOWEVER PATIENT'S KIDNEY FUNCTION HAD NOT IMPROVED AND PATIENT MAY NEED DIALYSIS IN THE FUTURE. Dx: INADEQUATE NUTRIENT INTAKE R/T CURRENT CONDITION AEB NPO STATUS, LOW BMI Intervention: DIET ADVANCEMENT, SUPPLEMENTATION, MEDS/FLUIDS PER MD Monitoring, Evaluation and Goals: 1. ADEQUATE PO INTAKES >50-75% OF MEALS ONCE DIET IS ADVANCED 2. PREVENT, CORRECT MICRO/MACRO NUTRIENT DEFICIENCIES 3. WEIGHT; PROMOTE A STEADY WEIGHT GAIN TOWARDS A HEALTHY BMI, PREVENT WEIGHT LOSS MONITOR: WEIGHTS, LABS, PO/FLUID INTAKES [facility] Nutrition Therapy DATE: 12/17/16 Patient: NORAH PEACOCK KELIN Physician: KELLE Address: [address] [facility] Room/Bed: [address], Zip: [place] [address] Admit Date: 12/17/16 Date of : [birth year] Height: 5 10 Weight: 88 40 Recommendations: 1. ONCE DIET ADVANCEMENT MEDICALLY FEASIBLE, AND PER CASINO FLOOR PERSON, RECOMMEND CC DIET WITH GLUCERCHICHO SHAKES QID. 2. ENCOURAGE ADEQUATE PO AND FLUID INTAKES 3. D/T PATIENT'S LOW BODY WEIGHT, MAY NEED TO CONSIDER FURTHER NUTRITION INTERVENTIONS SUCH AN APPETITE STIMULANT OR ENTERAL NUTRITION RD TO F/U PER PROTOCOL AND PRN R/T PATIENT SEVERELY COMPROMISED Respectfully, STEVE FLOYD, RD, LD Food and Nutritional Services [facility] cc: client file
--- NOTE | ~2016-12-17 | FU ---
[facility] Nutrition Therapy DATE: 12/21/16 Patient: NORAH PEACOCK KAICARMELLA Physician: KELLE Address: [address] [facility] Room/Bed: [address], Zip: [place] [address] Admit Date: 12/17/16 Date of : [birth year] Height: 5 10 Weight: 101 46 NUTRITION MONITORING/FOLLOW-UP: Reason: CONSULT RE: ENTERAL NUTRITION AFTER REVIEW OF LABS AND PMH/CURRENT CONDITION, RD RECOMMENDS ENTERAL NUTRITION SUPPORT OF GLUCERNA 1.5 @ 35 ML/HR. RD TO F/U PER PROTOCOL Respectfully, WILSON ARTEAGA MS, RD, LD Food and Nutritional Services [facility] cc: client file
--- NOTE | ~2016-12-17 | CR7 ---
[facility] A Service of [facility] RADIOLOGY TEXT RESULTS PATIENT: NORAH NEVILLE LOCATION: [address] : [birth year] UNIT #: [id number] AGE: [address]: Hazel Alatorre MD SEX: M ORDER DR: [id number] [facility] [address] [facility]. [place], [place] [address] [id number] I MR#: [id number] Acc #: [id number] NAME: NORAH NEVILLE : 1945 SEX: M STUDY DATE/TIME: 12/23/2016 13:34 UNIT: [facility] ROOM: [facility] STUDY DESCRIPTION: CR Abdomen Single AP View Attending Physician: Hazel Alatorer M.D. Ordering Physician: Hazel Alatorre M.D. Primary Care Physician: No Primary Care Physician MEDICAL IMAGING REPORT This report is preliminary unless electronic signature is present EXAM KUB, 12/23. INDICATION Feeding tube placement. FINDINGS Supine view of the abdomen was obtained. Tip of a flexible feeding tube is present in the fundus of the stomach. Bowel gas pattern is nonspecific but nonobstructive. Dictated by... Kumar Kothari Jr., M.D. THIS IS AN ELECTRONICALLY VERIFIED REPORT Kumar Kothari Jr., M.D. at 12/24/2016 7:19 AM PREMA/renae TD: 12/23/2016 17:20 JOB #: [id number] MEDICAL IMAGING REPORT Page 1 of 1 COPY
--- NOTE | ~2016-12-17 | FU ---
[facility] Nutrition Therapy DATE: 12/22/16 Patient: NORAH NEVILLE Physician: KELLE Address: [address] [facility] Room/Bed: [address], Zip: [place] [address] Admit Date: 12/17/16 Date of : [birth year] Height: 5 10 Weight: 81 36.8 NUTRITION MONITORING/FOLLOW-UP: Reason: VERBAL CONSULT FROM RN PEDIATRIC ICU: CHANGE OF ENTERAL NUTRITION SUPPORT PT CONTINUES TO BE INTUBATED AND SEDATED AT TIME OF VISIT. PT CURRENTLY RECEIVING ENTERAL NUTRITION SUPPORT OF GLUCERNA 1.5 @ 35 ML/HR. PER RN AND CHART, PT TOLERATING EN. PER PUMP HISTORY, PT RECEIVING ~82% ESTIMATED GOAL VOLUME PAST [address] REVIEWED LABS AND MEDICATIONS. FAMILY IN ROOM REPORTED NO DIET QUESTIONS AT THIS TIME. ESTIMATED NEEDS: 7140-8725 KCAL 64-80 G PRO RECOMMENDATIONS: 1. CONTINUE CURRENT ENTERAL NUTRITION SUPPORT ABOVE 2. IF PT'S ELECTROLYTES BECOME ELEVATED/RENAL FUNCTION WORSENS, RECOMMEND TO SWITCH ENTERAL NUTRITION SUPPORT TO NEPRO @ 10 ML/HR, ADVANCE 10 ML q 12 HOURS TO GOAL RATE OF 30 ML/HR + SUGAR-FREE PROSTAT ONCE DAILY -PROVIDES 1396 KCAL, 73 G PRO, 526 ML FREE H20 ADD FREE H20 FLUSHES PER RD WILL F/U PER PROTOCOL PT IS MOD/SEVERELY COMPROMISED Respectfully, WILSON ARTEAGA MS, RD, LD Food and Nutritional Services [facility] cc: client file
--- NOTE | ~2016-12-17 | CO ---
Unit #: [id number] #: [id number] Patient: RUSTY SIDHU [id number] [facility]. [place], [place] [address] [id number] MR#: [id number] NAME: RUSTY SIDHU ROOM: [facility] Age: 71 Sex: M Admission Date: 12/17/2016 : 1945 Attending Physician: Hazel Alatorre M.D. Primary Care Physician: Primary Care Physician No Consultation Date: 12/17/2016 CONSULTATION REPORT REASON FOR CONSULTATION Renal failure. Thank you very much for asking me to see this patient in consultation. HISTORY OF PRESENT ILLNESS Mr. Rusty Sidhu is a 71-year-old male, who presented to the hospital with 2 to 3 days of weakness, increased shortness of breath, cough, noted to have low sugar, presented to emergency room and subsequently noted to be hypoxic workup included a left lower lobe pneumonia. The patient was noted upon presentation to have a BUN and creatinine of 78 and 5.5. Because of this, I was asked to see the patient. The patient is alert, but little confused and very poor historian. I did discuss the case with his as well. According to her, he has had no history of abnormal kidney function. He was recently started [facility] Har[facility] about 2 to 3 [facility] In reviewing the records here on 11/07/2016, he had a creatinine of 1.3 and that is the only one I have. He currently is alert, but little confused. He has positive shortness of breath. No chest pain. He has had weakness. No history of nonsteroidal use as best I can tell at this time. PAST MEDICAL HISTORY History of hepatitis C recently started on Harvoni, history of adult onset diabetes mellitus x20 years, history of hypertension for many years, history of depression, history of peripheral vascular disease status post left BKA, history of posttraumatic stress syndrome. SOCIAL HISTORY He is . Positive smoker. No alcohol. FAMILY HISTORY Positive for diabetes and positive for hypertension in multiple relatives with renal failure from diabetes. ALLERGIES No known drug allergies. MEDICATIONS At home included aspirin, Lipitor, lisinopril, metoprolol, Neurontin, insulin, Effexor, Haldol, BuSpar, and nifedipine as well as Harvoni. REVIEW OF SYSTEMS No visual problems or sinus problems. Positive for cough. No hemoptysis. Unit #: [id number] #: [id number] Patient: RUSTY SIDHU No neck pain or neck stiffness. No chest pain or chest heaviness. He has had increased shortness of breath. No severe abdominal pain. Positive for decreased p.o. intake. No urinary symptoms. No significant swelling. No recent seizures or strokes or skin rashes. PHYSICAL EXAMINATION GENERAL: He is alert, in some mild distress. VITAL SIGNS: His T-max 99.4, pulse is 104 to 133, blood pressure 123 to 187 over 70s to 90s. He has a Panchal catheter in with minimal output so far. HEENT: He is normocephalic and atraumatic. Pupils are equal, round, and reactive to light. Extraocular muscles are intact. Hearing appears to be normal. Mouth is dry. No erythema. No exudate. NECK: Supple. No adenopathy. CARDIAC: He is tachycardic without a rub. No S3 or S4. LUNGS: Have rales in his left base only. ABDOMEN: Bowel sounds positive. Nontender. Soft. No masses felt. No hepato-organomegaly noted. EXTREMITIES: He has no lower extremity swelling on his right. On left, he has BKA. SKIN: No rashes. JOINTS: No joint swelling. : Panchal catheter is in place. NEUROLOGIC: He is able to move all extremities and appears to be grossly intact motor and sensory. DIAGNOSTIC STUDIES LABORATORY RESULTS: Shows sodium of 146, potassium 3.7, chloride is 109, bicarb is 23, BUN is 78, creatinine 5.5, glucose initially was 31, calcium is 8.9, albumin is 3.1, AST is 241, ALT is 159. BNP is only 101. Lactic acid is 2.4. Hemoglobin is 14, white count 20,200, platelets 441,000. UA shows specific gravity of 1.019, 2+ protein, 5 to 10, rbc's, 0 to 2 wbc's. ABG showed a pH of 7.269, pCO2 of 44, PO2 of 67 on 50% face mask. ASSESSMENT/PLAN 1. Acute kidney injury. This gentleman's creatinine was 1.3 a month ago and now worsening. A CPK has been ordered and is pending. Certainly, the patient could have acute tubular necrosis from pneumonia, sepsis, as well as volume depletion on top of the other. He does have some proteinuria as well as hematuria. We will go ahead and check a C3 and C4 some serology markers to rule out pulmonary renal syndrome. We will also with his hepatitis C check serum cryoglobulin. We will quantitate his protein with protein to creatinine ratio. Check urine eosinophils, random urine sodium. Renal ultrasound has been ordered, but is pending. We will keep Panchal catheter in for now. I agree with IV fluids. Again await for CPK and treat if positive. I had a discussion with him and his and if renal function does not improve or worsen, they both agree for possible hemodialysis, but will see what labs are this morning and we will determine p.r.n. hemodialysis. 2. Hepatitis C. 3. Left lower lobe pneumonia. 4. Hypertension. Certainly, I agree with stopping his angiotensin receptor blockers and BAUDILIO inhibitors at this time. Dictated by.Reyna Sauer M.D. Unit #: [id number] #: [id number] Patient: RUSTY SIDHU WAHeather/modl TD: 12/18/2016 02:38 JOB #: [id number] CONSULTATION REPORT Page 1 of 1 X Nyla Sauer MD X CONSULTATION REPORT
--- NOTE | ~2016-12-17 | EKG ---
PATIENT: NORAH NEVILLE UNIT #: [id number] Ventricular Rate: 103 BPM Atrial Rate: 103 BPM P-R Interval: 114 ms QRS Duration: 82 ms Q-T Interval: 368 ms QTC Calculation(Bezet): 482 ms P Townsend: 68 degrees Calculated R Townsend: 59 degrees Calculated T Townsend: -62 degrees Diagnosis Line: Sinus tachycardia with occasional Premature Diagnosis Line: ventricular complexes Diagnosis Line: T wave abnormality, consider anterior ischemia Diagnosis Line: Abnormal ECG Diagnosis Line: When compared with ECG of 21-DEC-2016 10:25, Diagnosis Line: Premature ventricular complexes are now Present Diagnosis Line: Nonspecific T wave abnormality has replaced Diagnosis Line: inverted T waves in Inferior leads Diagnosis Line: T wave inversion less evident in Anterolateral Diagnosis Line: leads Diagnosis Line: QT has shortened Diagnosis Line: Confirmed by DYLAN HERNANDEZ MD ([id number]) on 12/23/2016 Diagnosis Line: 8:37:14 PM INTERPRETING MD: DAVID GILLILAND
[2016-12-17 00:21] LABS: ARTERIAL BLOOD GAS ALLEN TEST NORMAL; ARTERIAL BLOOD GAS ART SITE LEFT RADIAL; ARTERIAL BLOOD GAS CARBOXY HB 0.6 %sat (0.0-9.0); ARTERIAL BLOOD GAS DELIVERY NON REBREATHER MASK; ARTERIAL BLOOD GAS HCO3 22.7 mmol/L; ARTERIAL BLOOD GAS MET HB 0.8 %sat (0.0-2.0); ARTERIAL BLOOD GAS PCO2 43.3 mmHg (35.0-45.0); ARTERIAL BLOOD GAS PO2 73.4 mmHg (80.0-100); ARTERIAL BLOOD GAS pH 7.327 (7.350-7.450); ARTERIAL DRAW? YES
[2016-12-17 00:42] LABS: BASOPHIL# 0.1 X10e3 (0-0.3); BASOPHIL% 0.5 % (0-2.5); DIFF IND YES; HEMATOCRIT 42.7 % (38.0-50.0); LYMPHOCYTE# 1.1 X10e3 (1.0-3.5); LYMPHOCYTE% 5.3 % (17.0-45.0); MEAN CELL VOLUME 90.3 FL (83-96); MEAN CORPUSCULAR HEMOGLOBIN 29.5 PG (28-34); MEAN CORPUSCULAR HGB CONC 32.7 g/dL (30-36); MEAN PLATELET VOLUME 8.2 FL (6.5-11.5); MONOCYTE% 9.8 % (3.0-12.0); NEUTROPHIL# 17.1 X10e3 (1.5-7.1); NEUTROPHIL% 84.4 % (40-75); PLATELET COUNT 441 X10e3 (140-420); RED BLOOD COUNT 4.73 X10e (3.90-5.60); RED CELL DISTRIBUTION WIDTH 14.9 % (11.0-15.5); WHITE BLOOD COUNT 20.2 X10e3 (4.0-10.5)
[2016-12-17 00:53] LABS: PARTIAL THROMBOPLASTIN TIME 27.4 SECONDS (23.5-31.3); PROTHROMBIN TIME (PATIENT) 11.2 SECONDS (10.0-11.7)
[2016-12-17 01:03] LABS: ALBUMIN SERUM 3.1 g/dL (3.5-5.0); BILIRUBIN, DIRECT 0.2 mg/dL (0.0-0.2); BILIRUBIN,INDIRECT 0.4 mg/dL (0.0-0.9); BILIRUBIN,TOTAL 0.6 mg/dL (0.2-2.0); BUN/CREATININE RATIO 14.18; CALCIUM SERUM 8.9 mg/dL (8.4-10.2); CREATININE SERUM 5.5 mg/dL (0.6-1.4); GLOM FILT RATE Estimated 11.2 mL/min (>60); POTASSIUM 3.7 mmol/L (3.5-5.1)
[2016-12-17 01:11] LABS: ACANTHOCYTES PRESENT; PLATELET ESTIMATE INCREASED (NORMAL); SMUDGE CELLS 8 /100
[2016-12-17 01:22] LABS: POC - CKMB 39.2 ng/mL (0.0-7.9); POC - TROPONIN 0.3 ng/mL (<=0.05)
[2016-12-17] MEDS ORDERED: AMLACTIN400 GM TOP (02:37)
[2016-12-17] MEDS ORDERED: ASPIRIN81 M2 PO (02:38)
[2016-12-17] MEDS ORDERED: LIPITOR80 MG PO (02:38)
[2016-12-17] MEDS ORDERED: LISINOPRIL20 MG PO (02:38)
[2016-12-17] MEDS ORDERED: LOPRESSOR PO (02:38)
[2016-12-17] MEDS ORDERED: NEURONTIN PO (02:39)
[2016-12-17] MEDS ORDERED: LEVEMIR100 UNITS/ SUBQ (02:39)
[2016-12-17] MEDS ORDERED: EFFEXOR75 M2 PO (02:39)
[2016-12-17] MEDS ORDERED: HALDOL PO (02:40)
[2016-12-17] MEDS ORDERED: BUSPAR5 MG PO (02:40)
[2016-12-17] MEDS ORDERED: NOVOLOG100 UNITS/ SUBQ ×2 (02:41)
[2016-12-17] MEDS ORDERED: HARVONI PO (02:43)
[2016-12-17] MEDS ORDERED: PERCOCET5/325 PO (02:44)
[2016-12-17] MEDS ORDERED: ADALAT CC PO (02:44)
[2016-12-17 03:10] LABS: ARTERIAL BLD GAS O2 SATURATION 88.6 % (90.0-100.0); ARTERIAL BLOOD GAS CARBOXY HB 0.2 %sat (0.0-9.0); ARTERIAL BLOOD GAS HCO3 20.2 mmol/L; ARTERIAL BLOOD GAS MET HB 0.8 %sat (0.0-2.0); ARTERIAL BLOOD GAS PCO2 44.3 mmHg (35.0-45.0); ARTERIAL BLOOD GAS pH 7.269 (7.350-7.450)
[2016-12-17 03:11] LABS: ARTERIAL BLOOD GAS ALLEN TEST NORMAL; ARTERIAL BLOOD GAS ART SITE LEFT RADIAL; ARTERIAL BLOOD GAS PO2 67.2 mmHg (80.0-100); ARTERIAL DRAW? YES
[2016-12-17 03:36] LABS: URINE SOURCE CATH
[2016-12-17 03:42] LABS: URINE APPEARANCE CLEAR; URINE BILIRUBIN NEG (NEG); URINE BLOOD 3+ (NEG); URINE COLOR YELLOW; URINE GLUCOSE 250 MG/DL (NEG); URINE KETONE TRACE (NEG); URINE LEUKOCYTE ESTERASE TRACE (NEG); URINE NITRATE NEG (NEG); URINE PH 5.5 (5-8); URINE PROTEIN 2+ (NEG); URINE SPECIFIC GRAVITY 1.019 (1.003-1.035)
[2016-12-17 03:45] LABS: URINE BACTERIA AUWI NEG (NEGATIVE); URINE SQUAMOUS EPITHELIAL CELL NONE SEEN /[HPF]; UWBCS1 AUWI 0-2 (0-5)
[2016-12-17 03:57] LABS: CULTURE INDICATED? NO
[2016-12-17 06:24] LABS: ARTERIAL BLD GAS O2 SATURATION 97.6 % (90.0-100.0); ARTERIAL BLOOD GAS CARBOXY HB 0.1 %sat (0.0-9.0); ARTERIAL BLOOD GAS HCO3 19.2 mmol/L; ARTERIAL BLOOD GAS PCO2 36.4 mmHg (35.0-45.0)
[2016-12-17 06:25] LABS: ARTERIAL BLOOD GAS ART SITE RIGHT RADIAL; ARTERIAL DRAW? YES
[2016-12-17 06:34] LABS: BASOPHIL% 0.2 % (0-2.5); EOSINOPHIL% 0.1 % (0.0-7.0); HEMATOCRIT 39.1 % (38.0-50.0); HEMOGLOBIN 12.3 gm/dL (13.0-16.0); LYMPHOCYTE# 0.3 X10e3 (1.0-3.5); LYMPHOCYTE% 1.7 % (17.0-45.0); MEAN CELL VOLUME 93.1 FL (83-96); MEAN CORPUSCULAR HEMOGLOBIN 29.3 PG (28-34); MEAN CORPUSCULAR HGB CONC 31.5 g/dL (30-36); MEAN PLATELET VOLUME 8.7 FL (6.5-11.5); MONOCYTE# 1.3 X10e3 (0-1.0); MONOCYTE% 6.6 % (3.0-12.0); NEUTROPHIL# 18.7 X10e3 (1.5-7.1); NEUTROPHIL% 91.4 % (40-75); PLATELET COUNT 364 X10e3 (140-420); RED CELL DISTRIBUTION WIDTH 15.4 % (11.0-15.5); WHITE BLOOD COUNT 20.4 X10e3 (4.0-10.5)
[2016-12-17 06:38] LABS: DIFF IND NO
[2016-12-17 07:32] LABS: ALBUMIN SERUM 2.7 g/dL (3.5-5.0); ALKALINE PHOSPHATASE 92 U/L (32-92); ALT (SGPT) 129 U/L (10-40); AST (SGOT) 232 U/L (10-42); BILIRUBIN,TOTAL 0.7 mg/dL (0.2-2.0); BLOOD UREA NITROGEN 78 mg/dL (9-23); BUN/CREATININE RATIO 14.44; CALCIUM SERUM 8.1 mg/dL (8.4-10.2); CARBON DIOXIDE 19 mmol/L (22-31); CHLORIDE 111 mmol/L (100-111); CK TOTAL 11377 IU/L (36-174); CREATININE SERUM 5.4 mg/dL (0.6-1.4); GLOM FILT RATE Estimated 11.5 mL/min (>60); GLUCOSE FASTING 108 mg/dL (70-110); POTASSIUM 4.8 mmol/L (3.5-5.1); PROTEIN TOTAL SERUM 6.7 g/dL (6.0-8.3); SODIUM 146 mmol/L (135-145)
[2016-12-17 15:04] LABS: MB <0.3 ng/ml
[2016-12-17 15:05] LABS: BUN/CREATININE RATIO 15.6; CALCIUM SERUM 7.3 mg/dL (8.4-10.2); GLOM FILT RATE Estimated 12.6 mL/min (>60); POTASSIUM 4.7 mmol/L (3.5-5.1)
[2016-12-17 15:24] LABS: ARTERIAL BLD GAS O2 SATURATION 95.1 % (90.0-100.0); ARTERIAL BLOOD GAS CARBOXY HB 0.4 %sat (0.0-9.0); ARTERIAL BLOOD GAS HCO3 21.5 mmol/L; ARTERIAL BLOOD GAS PCO2 35.4 mmHg (35.0-45.0); ARTERIAL BLOOD GAS PO2 81.2 mmHg (80.0-100); ARTERIAL BLOOD GAS pH 7.391 (7.350-7.450)
[2016-12-17 15:25] LABS: ARTERIAL BLOOD GAS ART SITE RIGHT RADIAL; ARTERIAL BLOOD GAS DELIVERY OXYMIZER; ARTERIAL DRAW? YES
[2016-12-17 17:43] LABS: URINE APPEARANCE TURBID; URINE BILIRUBIN NEG (NEG); URINE BLOOD 3+ (NEG); URINE COLOR YELLOW; URINE GLUCOSE >1000 MG/DL (NEG); URINE KETONE NEG (NEG); URINE LEUKOCYTE ESTERASE TRACE (NEG); URINE NITRATE NEG (NEG); URINE PROTEIN 2+ (NEG); URINE SPECIFIC GRAVITY 1.015 (1.003-1.035)
[2016-12-17 17:46] LABS: CULTURE INDICATED? YES; URBCS1 AUWI 200-300 /[HPF] (0-2); URINE BACTERIA AUWI NEG (NEGATIVE); URINE SQUAMOUS EPITHELIAL CELL OCC /[HPF]
[2016-12-17 17:57] LABS: CREATININE,RANDOM URINE 45 mg/dL; SODIUM URINE RANDOM 76 mmol/L; TOTAL PROTEIN,RANDOM URINE 114 mg/dl (<10)
[2016-12-18 04:11] LABS: ARTERIAL BLD GAS O2 SATURATION 97.6 % (90.0-100.0); ARTERIAL BLOOD GAS CARBOXY HB 0.3 %sat (0.0-9.0); ARTERIAL BLOOD GAS HCO3 26.7 mmol/L; ARTERIAL BLOOD GAS MET HB 0.6 %sat (0.0-2.0); ARTERIAL BLOOD GAS PCO2 40.2 mmHg (35.0-45.0); ARTERIAL BLOOD GAS pH 7.431 (7.350-7.450)
[2016-12-18 04:16] LABS: ARTERIAL BLOOD GAS ALLEN TEST NORMAL; ARTERIAL BLOOD GAS ART SITE LEFT RADIAL; ARTERIAL DRAW? YES
[2016-12-18 06:38] LABS: BASOPHIL% 0.1 % (0-2.5); HEMOGLOBIN 11.4 gm/dL (13.0-16.0); LYMPHOCYTE# 0.3 X10e3 (1.0-3.5); LYMPHOCYTE% 1.5 % (17.0-45.0); MEAN CORPUSCULAR HEMOGLOBIN 29.4 PG (28-34); MEAN CORPUSCULAR HGB CONC 32.6 g/dL (30-36); MEAN PLATELET VOLUME 8.7 FL (6.5-11.5); MONOCYTE# 0.6 X10e3 (0-1.0); MONOCYTE% 2.8 % (3.0-12.0); NEUTROPHIL# 21.8 X10e3 (1.5-7.1); NEUTROPHIL% 95.6 % (40-75); PLATELET COUNT 289 X10e3 (140-420); RED BLOOD COUNT 3.89 X10e (3.90-5.60); RED CELL DISTRIBUTION WIDTH 15.1 % (11.0-15.5); WHITE BLOOD COUNT 22.8 X10e3 (4.0-10.5)
[2016-12-18 06:39] LABS: DIFF IND NO
[2016-12-18 08:09] LABS: BILIRUBIN,TOTAL 0.2 mg/dL (0.2-2.0); BUN/CREATININE RATIO 15.41; CALCIUM SERUM 6.9 mg/dL (8.4-10.2); CREATININE SERUM 4.8 mg/dL (0.6-1.4); GLOM FILT RATE Estimated 13.2 mL/min (>60); PROTEIN TOTAL SERUM 5.8 g/dL (6.0-8.3)
[2016-12-18 18:30] LABS: URINE APPEARANCE CLEAR; URINE BILIRUBIN NEG (NEG); URINE BLOOD 3+ (NEG); URINE COLOR YELLOW; URINE GLUCOSE NEG (NEG); URINE KETONE NEG (NEG); URINE LEUKOCYTE ESTERASE NEG (NEG); URINE NITRATE NEG (NEG); URINE PROTEIN 2+ (NEG); URINE SPECIFIC GRAVITY 1.012 (1.003-1.035)
[2016-12-18 18:32] LABS: CULTURE INDICATED? YES; U HYALINE CASTS AUWI 0-2 /[LPF]; URINE BACTERIA AUWI 1+ (NEGATIVE); URINE SQUAMOUS EPITHELIAL CELL OCC /[HPF]
[2016-12-18 19:09] LABS: BUN/CREATININE RATIO 16.88; CALCIUM SERUM 6.3 mg/dL (8.4-10.2); CREATININE SERUM 4.5 mg/dL (0.6-1.4); GLOM FILT RATE Estimated 14.3 mL/min (>60); POTASSIUM 3.2 mmol/L (3.5-5.1)
[2016-12-19 06:17] LABS: BASOPHIL# 0.1 X10e3 (0-0.3); BASOPHIL% 0.2 % (0-2.5); HEMATOCRIT 27.8 % (38.0-50.0); HEMOGLOBIN 9.2 gm/dL (13.0-16.0); LYMPHOCYTE# 0.1 X10e3 (1.0-3.5); LYMPHOCYTE% 0.5 % (17.0-45.0); MEAN CELL VOLUME 87.6 FL (83-96); MEAN CORPUSCULAR HGB CONC 33.1 g/dL (30-36); MEAN PLATELET VOLUME 8.3 FL (6.5-11.5); MONOCYTE# 0.6 X10e3 (0-1.0); MONOCYTE% 2.1 % (3.0-12.0); NEUTROPHIL% 97.2 % (40-75); PLATELET COUNT 243 X10e3 (140-420); RED BLOOD COUNT 3.17 X10e (3.90-5.60); WHITE BLOOD COUNT 27.8 X10e3 (4.0-10.5)
[2016-12-19 06:19] LABS: DIFF IND NO
[2016-12-19 07:14] LABS: ALBUMIN SERUM 1.7 g/dL (3.5-5.0); BILIRUBIN,TOTAL 0.3 mg/dL (0.2-2.0); BUN/CREATININE RATIO 19.25; CALCIUM SERUM 6.4 mg/dL (8.4-10.2); GLOM FILT RATE Estimated 16.5 mL/min (>60); POTASSIUM 3.4 mmol/L (3.5-5.1); PROTEIN TOTAL SERUM 4.6 g/dL (6.0-8.3)
[2016-12-20 05:45] LABS: BASOPHIL# 0.1 X10e3 (0-0.3); BASOPHIL% 0.3 % (0-2.5); HEMATOCRIT 31.1 % (38.0-50.0); HEMOGLOBIN 10.1 gm/dL (13.0-16.0); LYMPHOCYTE# 0.2 X10e3 (1.0-3.5); LYMPHOCYTE% 0.5 % (17.0-45.0); MEAN CELL VOLUME 88.4 FL (83-96); MEAN CORPUSCULAR HEMOGLOBIN 28.6 PG (28-34); MEAN CORPUSCULAR HGB CONC 32.4 g/dL (30-36); MEAN PLATELET VOLUME 8.6 FL (6.5-11.5); MONOCYTE# 0.8 X10e3 (0-1.0); NEUTROPHIL# 37.8 X10e3 (1.5-7.1); NEUTROPHIL% 97.2 % (40-75); PLATELET COUNT 218 X10e3 (140-420); RED BLOOD COUNT 3.51 X10e (3.90-5.60); RED CELL DISTRIBUTION WIDTH 15.2 % (11.0-15.5); WHITE BLOOD COUNT 38.8 X10e3 (4.0-10.5)
[2016-12-20 05:53] LABS: DIFF IND YES
[2016-12-20 06:14] LABS: URINE APPEARANCE CLOUDY; URINE BILIRUBIN NEG (NEG); URINE BLOOD 3+ (NEG); URINE COLOR YELLOW; URINE GLUCOSE NEG (NEG); URINE KETONE NEG (NEG); URINE LEUKOCYTE ESTERASE NEG (NEG); URINE NITRATE NEG (NEG); URINE PH 7.5 (5-8); URINE PROTEIN 2+ (NEG); URINE SPECIFIC GRAVITY 1.012 (1.003-1.035)
[2016-12-20 06:15] LABS: ALBUMIN SERUM 1.7 g/dL (3.5-5.0); BILIRUBIN,TOTAL 0.5 mg/dL (0.2-2.0); BUN/CREATININE RATIO 19.09; CALCIUM SERUM 6.8 mg/dL (8.4-10.2); CREATININE SERUM 3.3 mg/dL (0.6-1.4); GLOM FILT RATE Estimated 20.8 mL/min (>60); PROTEIN TOTAL SERUM 4.8 g/dL (6.0-8.3)
[2016-12-20 06:17] LABS: URINE BACTERIA AUWI NEG (NEGATIVE); URINE SQUAMOUS EPITHELIAL CELL OCC /[HPF]
[2016-12-20 06:17] LABS: POTASSIUM 2.8 mmol/L (3.5-5.1)
[2016-12-20 06:45] LABS: BURR CELLS PRESENT; PLATELET ESTIMATE NORMAL (NORMAL)
[2016-12-20 06:46] LABS: ANISOCYTOSIS SL; MICROCYTOSIS SL; POIKILOCYTOSIS SL; SCHISTOCYTES PRESENT
[2016-12-20 06:47] LABS: ACANTHOCYTES PRESENT
[2016-12-20 09:24] LABS: ARTERIAL BLD GAS O2 SATURATION 94.3 % (90.0-100.0); ARTERIAL BLOOD GAS CARBOXY HB 0.7 %sat (0.0-9.0); ARTERIAL BLOOD GAS HCO3 22.9 mmol/L; ARTERIAL BLOOD GAS MET HB 0.8 %sat (0.0-2.0); ARTERIAL BLOOD GAS PCO2 34.2 mmHg (35.0-45.0); ARTERIAL BLOOD GAS pH 7.435 (7.350-7.450)
[2016-12-20 09:25] LABS: ARTERIAL BLOOD GAS ALLEN TEST NORMAL; ARTERIAL BLOOD GAS ART SITE RIGHT RADIAL; ARTERIAL BLOOD GAS PO2 78.4 mmHg (80.0-100); ARTERIAL DRAW? YES
[2016-12-20 09:26] LABS: ARTERIAL BLOOD GAS DELIVERY HIGH FLOW
[2016-12-20 13:35] LABS: BUN/CREATININE RATIO 19.66; CALCIUM SERUM 6.7 mg/dL (8.4-10.2); GLOM FILT RATE Estimated 23.3 mL/min (>60)
[2016-12-20 14:17] LABS: HEMATOCRIT 30.4 % (38.0-50.0); HEMOGLOBIN 9.8 gm/dL (13.0-16.0); MEAN CELL VOLUME 89.5 FL (83-96); MEAN CORPUSCULAR HEMOGLOBIN 28.8 PG (28-34); MEAN CORPUSCULAR HGB CONC 32.2 g/dL (30-36); RED BLOOD COUNT 3.4 X10e (3.90-5.60); RED CELL DISTRIBUTION WIDTH 15.5 % (11.0-15.5); WHITE BLOOD COUNT 34.4 X10e3 (4.0-10.5)
[2016-12-20 14:35] LABS: INR 1.2; PARTIAL THROMBOPLASTIN TIME 31.3 SECONDS (23.5-31.3); PROTHROMBIN TIME (PATIENT) 12.9 SECONDS (10.0-11.7)
[2016-12-20 19:20] LABS: ARTERIAL BLD GAS O2 SATURATION 98.7 % (90.0-100.0); ARTERIAL BLOOD GAS CARBOXY HB 0.3 %sat (0.0-9.0); ARTERIAL BLOOD GAS MET HB 0.7 %sat (0.0-2.0); ARTERIAL BLOOD GAS PCO2 40.4 mmHg (35.0-45.0); ARTERIAL BLOOD GAS pH 7.345 (7.350-7.450)
[2016-12-20 19:22] LABS: ARTERIAL BLOOD GAS ALLEN TEST NORMAL; ARTERIAL BLOOD GAS ART SITE RIGHT RADIAL; ARTERIAL BLOOD GAS DELIVERY VENT; ARTERIAL BLOOD GAS VENT MODE AC; ARTERIAL DRAW? YES
[2016-12-20 23:54] LABS: CREATININE,RANDOM URINE 48 mg/dL; SODIUM URINE RANDOM 88 mmol/L
[2016-12-21 00:15] LABS: COMPLEMENT C3 142 mg/dL (90-180); COMPLEMENT C4 42 mg/dL (16-47)
[2016-12-21 03:56] LABS: ARTERIAL BLD GAS O2 SATURATION 95.2 % (90.0-100.0); ARTERIAL BLOOD GAS CARBOXY HB 0.4 %sat (0.0-9.0); ARTERIAL BLOOD GAS HCO3 20.5 mmol/L; ARTERIAL BLOOD GAS MET HB 0.7 %sat (0.0-2.0); ARTERIAL BLOOD GAS PCO2 40.9 mmHg (35.0-45.0); ARTERIAL BLOOD GAS PO2 88.1 mmHg (80.0-100); ARTERIAL BLOOD GAS pH 7.308 (7.350-7.450)
[2016-12-21 04:01] LABS: ARTERIAL BLOOD GAS ALLEN TEST NORMAL; ARTERIAL BLOOD GAS ART SITE RIGHT RADIAL; ARTERIAL BLOOD GAS DELIVERY VENT; ARTERIAL BLOOD GAS VENT MODE AC; ARTERIAL DRAW? YES
[2016-12-21 06:22] LABS: BASOPHIL# 0.1 X10e3 (0-0.3); BASOPHIL% 0.2 % (0-2.5); HEMATOCRIT 24.7 % (38.0-50.0); LYMPHOCYTE# 0.2 X10e3 (1.0-3.5); LYMPHOCYTE% 0.6 % (17.0-45.0); MEAN CELL VOLUME 89.8 FL (83-96); MEAN CORPUSCULAR HEMOGLOBIN 29.1 PG (28-34); MEAN CORPUSCULAR HGB CONC 32.4 g/dL (30-36); MEAN PLATELET VOLUME 8.6 FL (6.5-11.5); MONOCYTE# 0.2 X10e3 (0-1.0); MONOCYTE% 0.7 % (3.0-12.0); NEUTROPHIL# 27.4 X10e3 (1.5-7.1); NEUTROPHIL% 98.5 % (40-75); PLATELET COUNT 139 X10e3 (140-420); RED BLOOD COUNT 2.75 X10e (3.90-5.60); RED CELL DISTRIBUTION WIDTH 15.2 % (11.0-15.5); WHITE BLOOD COUNT 27.9 X10e3 (4.0-10.5)
[2016-12-21 06:23] LABS: DIFF IND NO
[2016-12-21 07:36] LABS: BUN/CREATININE RATIO 17.74; CALCIUM SERUM 7.2 mg/dL (8.4-10.2); CREATININE SERUM 3.1 mg/dL (0.6-1.4); GLOM FILT RATE Estimated 22.4 mL/min (>60); POTASSIUM 3.7 mmol/L (3.5-5.1)
[2016-12-21 07:37] LABS: ALBUMIN SERUM 1.5 g/dL (3.5-5.0); BILIRUBIN,TOTAL 0.1 mg/dL (0.2-2.0); MAGNESIUM 1.3 mg/dL (1.6-3.0); PROTEIN TOTAL SERUM 4.3 g/dL (6.0-8.3)
[2016-12-22 05:31] LABS: BASOPHIL% 0.1 % (0-2.5); HEMATOCRIT 27.4 % (38.0-50.0); HEMOGLOBIN 8.8 gm/dL (13.0-16.0); LYMPHOCYTE# 0.2 X10e3 (1.0-3.5); LYMPHOCYTE% 0.7 % (17.0-45.0); MEAN CELL VOLUME 90.8 FL (83-96); MEAN PLATELET VOLUME 9.1 FL (6.5-11.5); MONOCYTE# 0.9 X10e3 (0-1.0); MONOCYTE% 2.8 % (3.0-12.0); NEUTROPHIL# 31.6 X10e3 (1.5-7.1); NEUTROPHIL% 96.4 % (40-75); PLATELET COUNT 149 X10e3 (140-420); RED BLOOD COUNT 3.02 X10e (3.90-5.60); RED CELL DISTRIBUTION WIDTH 15.7 % (11.0-15.5); WHITE BLOOD COUNT 32.8 X10e3 (4.0-10.5)
[2016-12-22 05:35] LABS: DIFF IND NO
[2016-12-22 05:51] LABS: BUN/CREATININE RATIO 22.85; CALCIUM SERUM 7.7 mg/dL (8.4-10.2); CREATININE SERUM 2.8 mg/dL (0.6-1.4); GLOM FILT RATE Estimated 25.3 mL/min (>60); MAGNESIUM 2.5 mg/dL (1.6-3.0); POTASSIUM 4.7 mmol/L (3.5-5.1)
[2016-12-22 06:15] LABS: %MB 0.8 % (0.0-4.0); MB 16.9 ng/ml
[2016-12-22 08:59] LABS: ARTERIAL BLD GAS O2 SATURATION 96.7 % (90.0-100.0); ARTERIAL BLOOD GAS CARBOXY HB 0.5 %sat (0.0-9.0); ARTERIAL BLOOD GAS HCO3 18.8 mmol/L; ARTERIAL BLOOD GAS MET HB 0.7 %sat (0.0-2.0); ARTERIAL BLOOD GAS pH 7.292 (7.350-7.450)
[2016-12-22 09:02] LABS: ARTERIAL BLOOD GAS ART SITE RIGHT RADIAL; ARTERIAL DRAW? YES
[2016-12-22 09:03] LABS: ARTERIAL BLOOD GAS DELIVERY VENT; ARTERIAL BLOOD GAS VENT MODE CPAP
[2016-12-22 15:33] LABS: CHOLESTEROL 95 mg/dL (0-200); HDL CHOLESTEROL 29 mg/dL (29-75); LDL CHOLESTEROL 42 mg/dL (-130); LDL/HDL RATIO 1 RATIO (0-4); TRIGLYCERIDES 122 mg/dL (10-160)
[2016-12-23 04:46] LABS: HEMATOCRIT 28.3 % (38.0-50.0); HEMOGLOBIN 9.1 gm/dL (13.0-16.0); MEAN CELL VOLUME 89.6 FL (83-96); MEAN CORPUSCULAR HEMOGLOBIN 28.8 PG (28-34); MEAN CORPUSCULAR HGB CONC 32.1 g/dL (30-36); MEAN PLATELET VOLUME 9.7 FL (6.5-11.5); RED BLOOD COUNT 3.15 X10e (3.90-5.60); RED CELL DISTRIBUTION WIDTH 15.7 % (11.0-15.5); WHITE BLOOD COUNT 43.9 X10e3 (4.0-10.5)
[2016-12-23 05:03] LABS: CALCIUM SERUM 7.8 mg/dL (8.4-10.2); CREATININE SERUM 2.8 mg/dL (0.6-1.4); GLOM FILT RATE Estimated 25.3 mL/min (>60); POTASSIUM 4.3 mmol/L (3.5-5.1)
[2016-12-23 14:35] LABS: ANA SCREEN Negative (Negative); MYELOPEROXIDASE AB (PNL) <1.0 AI (<1.0); PROTEINASE-3 AB (PNL) <1.0 AI (<1.0)
[2016-12-24 06:16] LABS: BASOPHIL# 0.1 X10e3 (0-0.3); BASOPHIL% 0.2 % (0-2.5); EOSINOPHIL% 0.1 % (0.0-7.0); HEMATOCRIT 22.4 % (38.0-50.0); LYMPHOCYTE# 0.4 X10e3 (1.0-3.5); LYMPHOCYTE% 1.3 % (17.0-45.0); MEAN CELL VOLUME 89.4 FL (83-96); MEAN CORPUSCULAR HEMOGLOBIN 28.4 PG (28-34); MEAN CORPUSCULAR HGB CONC 31.8 g/dL (30-36); MONOCYTE# 0.9 X10e3 (0-1.0); MONOCYTE% 2.6 % (3.0-12.0); NEUTROPHIL# 32.9 X10e3 (1.5-7.1); NEUTROPHIL% 95.8 % (40-75); PLATELET COUNT 149 X10e3 (140-420); RED CELL DISTRIBUTION WIDTH 15.6 % (11.0-15.5); WHITE BLOOD COUNT 34.3 X10e3 (4.0-10.5)
[2016-12-24 06:33] LABS: DIFF IND YES; HEMOGLOBIN 7.1 gm/dL (13.0-16.0)
[2016-12-24 06:36] LABS: BUN/CREATININE RATIO 38.51; CALCIUM SERUM 7.6 mg/dL (8.4-10.2); CREATININE SERUM 2.7 mg/dL (0.6-1.4); GLOM FILT RATE Estimated 26.5 mL/min (>60); POTASSIUM 3.9 mmol/L (3.5-5.1)
[2016-12-24 07:32] LABS: ACANTHOCYTES PRESENT; BURR CELLS PRESENT; PLATELET ESTIMATE NORMAL (NORMAL)
[2016-12-24 07:33] LABS: ANISOCYTOSIS SL; MICROCYTOSIS SL
[2016-12-24 07:37] LABS: OVALOCYTES PRESENT
[2016-12-24 07:38] LABS: SCHISTOCYTES PRESENT
== END 2016-12-26 22:00 | disposition expired | DRG 871 ==
LOC: CED 00:04 → CEDOF 02:02 → CED 02:02 → CICCU2 02:02 → CEDOF 02:15 → CICCU2 02:15 → CEDOF 04:19 → CICCU2 04:19 → C4C 12-25 01:20
PROVIDERS: Emergency Medicine; Internal Medicine; Internal Medicine Cardiovascular Disease; Internal Medicine Endocrinology, Diabetes & Metabolism; Internal Medicine Nephrology; Internal Medicine Pulmonary Disease; Registered Nurse
PROC: B24BZZZ Ultrasonography of Heart with Aorta (ICD-10-PCS; 2016-12-17)
PROC: 02HV33Z Insertion of Infusion Device into Superior Vena Cava, Percutaneous Approach (ICD-10-PCS; 2016-12-18)
PROC: 4A02X4A Measurement of Cardiac Electrical Activity, Guidance, External Approach (ICD-10-PCS; 2016-12-18)
PROC: 0BH17EZ Insertion of Endotracheal Airway into Trachea, Via Natural or Artificial Opening (ICD-10-PCS; principal; 2016-12-20)
PROC: 5A1945Z Respiratory Ventilation, 24-96 Consecutive Hours (ICD-10-PCS; 2016-12-20)
PROC: 0DH67UZ Insertion of Feeding Device into Stomach, Via Natural or Artificial Opening (ICD-10-PCS; 2016-12-23)
DX: A41.9 Sepsis, unspecified organism (principal); J69.0 Pneumonitis due to inhalation of food and vomit; J96.01 Acute respiratory failure with hypoxia; I21.4 Non-ST elevation (NSTEMI) myocardial infarction; E43 Unspecified severe protein-calorie malnutrition; N17.0 Acute kidney failure with tubular necrosis; R64 Cachexia; M62.82 Rhabdomyolysis; J44.1 Chronic obstructive pulmonary disease with (acute) exacerbation; Z68.1 Body mass index [BMI] 19.9 or less, adult; D62 Acute posthemorrhagic anemia; R04.2 Hemoptysis; E11.649 Type 2 diabetes mellitus with hypoglycemia without coma; Z79.4 Long term (current) use of insulin; R94.5 Abnormal results of liver function studies; B19.20 Unspecified viral hepatitis C without hepatic coma; I12.9 Hypertensive chronic kidney disease with stage 1 through stage 4 chronic kidney disease, or unspecified chronic kidney disease; N18.9 Chronic kidney disease, unspecified; F01.50 Vascular dementia, unspecified severity, without behavioral disturbance, psychotic disturbance, mood disturbance, and anxiety; E11.42 Type 2 diabetes mellitus with diabetic polyneuropathy; F43.10 Post-traumatic stress disorder, unspecified; F32.9 Major depressive disorder, single episode, unspecified; M25.551 Pain in right hip; Z89.512 Acquired absence of left leg below knee; F17.210 Nicotine dependence, cigarettes, uncomplicated; Z79.82 Long term (current) use of aspirin; Z51.5 Encounter for palliative care; Z66 Do not resuscitate; R13.10 Dysphagia, unspecified; E87.6 Hypokalemia; I73.9 Peripheral vascular disease, unspecified; Z83.6 Family history of other diseases of the respiratory system; Z82.49 Family history of ischemic heart disease and other diseases of the circulatory system
CPT/HCPCS: 36415; 36600; 71010; 73502; 74000; 76770; 80048; 80053; 80061; 80076; 81003; 82010; 82140; 82550; 82553; 82570; 82595; 82803; 82947; 83036; 83520; 83605; 83735; 83880; 84100; 84134; 84156; 84300; 84443; 84484; 85025; 85027; 85610; 85730; 86021; 86038; 86039; 86160; 86334; 87040; 87070; 87086; 87205; 87449; 87493; 89190; 92526; 92610; 93005; 93306; 94002; 94003; 94640; 94660; 94667; 94668; 94760; 94761; 96361; 96374; 96375; 99291; G8996-GN; G8997-GN; G8998-GN; J0360; J0456; J1450; J1644; J1650; J1815; J1940; J1956; J2020; J2060; J2250; J2270; J2543; J2920; J2930; J3475; J3490; J7060